=== PATIENT | female | born 1985 | race Caucasian/White ===

== ENCOUNTER 2020-09-08 17:26 | Emergency (ER) | payer OTHER, SELFPAY ==
[2020-09-08 19:54] VITALS: BP 140/64; PULSE 92; RESP 18; TEMP 37.2; O2SAT 99; BMI 80.0
--- NOTE | 2020-09-08 19:59 | ED.URI ---
HPI - URI/Sore Throat General Stated Complaint: Flu like Symptoms Time Seen by Provider: 09/08/20 19:05 Source: patient Mode of arrival: ambulatory Limitations: no limitations History of Present Illness HPI Narrative: patient presents to the ED for body aches, chills, night sweats, and fever. Patient states started having symptoms last night. 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 Related Data Previous Rx's Medication Instructions Recorded dextroamphetamine-amphetamine 10 10 mg PO TID 30 Days #90 tab 08/09/20 mg tablet Allergies Allergy/AdvReac Type Severity Reaction Status Date / Time Sulfa (Sulfonamide Allergy Unknown Hives, Unverified 06/09/20 00:00 Antibiotics) hives, ulcers Review of Systems Review of Systems: Yes all other systems are reviewed and are negative Constitutional: Constitutional: Reports as per HPI, Reports no additional constitutional complaints, Reports body ache(s), Reports chills, Reports fatigue and Reports fever(s) Eyes: Eyes: Reports as per HPI and Reports no additional eye complaints ENT: Reports system reviewed and no additional complaints, except as documented and Reports as per HPI Cardiovascular: Cardiovascular: Reports as per HPI, Reports no additional cardiovascular complaints, Denies chest pain, Denies chest pain at rest, Denies chest pain with activity, Denies dyspnea, Denies dyspnea on exertion, Denies orthopnea and Denies paroxysmal nocturnal dyspnea Respiratory: Respiratory: Reports as per HPI, Reports no additional respiratory complaints, Denies change in phlegm color, Denies chest congestion, Denies cough, Denies pain with cough, Denies dyspnea and Denies dyspnea on exertion Gastrointestinal: Gastrointestinal: Reports as per HPI, Reports no additional gastrointestinal complaints, Denies abdominal pain, Denies belching, Denies melena, Denies bloating, Denies hematochezia, Denies tenesmus, Denies change in stool character, Denies coffee ground emesis, Denies constipation, Denies GI cramping, Denies early satiety, Denies heartburn and Denies fecal incontinence Genitourinary: Genitourinary: Reports no additional female genitourinary complaints and Reports as per HPI Musculoskeletal: Musculoskeletal: Reports no additional musculoskeletal complaints and Reports as per HPI Neurologic: Reports system reviewed and no additional complaints, except as documented and Reports as per HPI Psychiatric: Psychiatric: Reports no additional psychiatric complaints and Reports as per HPI Endocrine: Endocrine: Reports fatigue [facility] Past Medical History Medical History (Updated 09/08/20 @ 20:05 by GUDELIA Choi) Appendicitis Asthma Social History Social History Alcohol intake: never Smoked in Last 30 Days: No Use of substances other than those prescribed or required for medical reasons: No Advance Directives: No Physical Exam Vital Signs: Vital Signs: Last Vital Signs Temp 99 F 09/08/20 19:54 Pulse 92 09/08/20 19:54 Resp 18 09/08/20 19:54 BP 140/64 H 09/08/20 19:54 Pulse Ox 99 09/08/20 19:54 Body Mass Index 80.0 Const: General: cooperative, healthy appearing, comfortable, no acute distress, well developed, alert and awake Orientation/consciousness: oriented to person, oriented to place, oriented to time and patient oriented x3 HENMT: Head: Yes normal to inspection and Yes No palpable skull fracture present Eyes: General: appearance normal, both eyes and all related structures Visual Arcos: normal visual arcos by confrontation Neck: Neck: Yes normal visual inspection, Yes full ROM, Yes no lymphadenopathy and Yes no meningeal signs Chest: Chest palpation & inspection: normal inspection of the chest, normal palpation of entire chest wall and no localized rib tenderness Resp: Effort & Inspection: normal respiratory effort, able to speak in complete sentences, normal respiratory pattern, no audible wheezes, no cough, no grunting, not labored and no nasal flaring Auscultation: clear to auscultation bilaterally, no crackles, no rales, no rhonchi and no wheezes Cardio: Jugular venous distension: no JVD Heart sounds: S1 normal heart sound present and S2 normal heart sound present GI: Inspection: Yes normal to inspection and No abdominal wall ecchymosis Palpation (GI): Soft to palpation, not firm, nontender, no guarding and not rigid : General: No CVA tenderness and Yes no CVA tenderness Back/Spine/Pelvis: Back: no CVA tenderness, No CVA tenderness and No back tenderness Skin: General skin exam: no rashes or lesions noted Neuro: General: oriented to person, oriented to place, oriented to time, patient oriented x3, gait normal, no meningeal signs and No CN's II-XI intact bilaterally Cranial nerves: No CN's II-XII intact bilaterally Extrem: General: Yes normal to inspection and Yes full ROM Psych: Appearance: grossly normal, well kempt and not disheveled Course Course Course Narrative: no imaging or labs needed. Patient will be swabbed for COVID-19 virus. Reevaluation(s) Reevaluation #1: Patient is swabbed for COVID-19. Patient educated on self-isolation. Time: 20:03 MDM - URI/Sore Throat MDM Narrative Medical decision making narrative: viral syndrome Discharge Plan Discharge Clinical Impression: Acute viral syndrome Patient Disposition: Home, Self-Care Instructions: Viral Syndrome (ED) Additional Instructions: return to the ED immediately for any chest pain, shortness of breath, coughing up blood, weakness, tractor for fever/chills, or any other concerning symptoms. Recommend 14 days self-isolation if COVID test come back positive. Stand Alone Forms: Work/School Release Print Language: Kazakh
== END 2020-09-08 20:31 | disposition home or self-care (01) ==
PROVIDERS: Physician Assistant; Emergency Provider Internal Medicine
DX: B34.9 Viral infection, unspecified (principal); M79.10 Myalgia, unspecified site; R05 Cough; Z20.828 Contact with and (suspected) exposure to other viral communicable diseases
CPT/HCPCS: 99283; 99284; U0003

== ENCOUNTER 2020-09-29 09:09 | Emergency (ER) | payer OTHER, SELFPAY ==
[2020-09-29 09:24] VITALS: BP 145/65; PULSE 84; RESP 17; TEMP 36.6; O2SAT 98; BMI 36.3
--- NOTE | 2020-09-29 09:36 | ED_ITS ---
HPI - Headache General Chief Complaint: Headache Stated Complaint: Headache Time Seen by Provider: 09/29/20 09:29 History of Present Illness HPI Narrative: patient is a 34-year-old female presents today with having headache over the right side worsen with light worsen with noise associated with nausea similar to previous bouts of migraine headache. No fever no chills. Patient does not think she is . No coughing or congestion or upper respiratory symptoms. No diaphoresis. Patient is from home. No focal weakness. No neck pain or fever Related Data Previous Rx's Medication Instructions Recorded dextroamphetamine-amphetamine 10 10 mg PO TID 30 Days #90 tab 08/09/20 mg tablet ibuprofen 400 mg PO Q6H PRN #20 tab 09/29/20 ondansetron 4 mg PO TID PRN 5 Days #10 tab 09/29/20 Allergies Allergy/AdvReac Type Severity Reaction Status Date / Time Sulfa (Sulfonamide Allergy Unknown Hives, Unverified 06/09/20 00:00 Antibiotics) hives, ulcers Review of Systems Review of Systems: Constitutional: No Weight loss, No Fever, No Chills, No Night Sweats, No Fatigue, No Malaise ENT/Mouth: No Hearing loss, No Ear Pain, No Nasal Congestion, No Sinus Pain, No Hoarseness, No sore throat, No Rhinorrhea, No Swallowing Difficulty Eyes: No Eye Pain, No Swelling, No Redness, No Foreign Body, No Discharge, No Vision Changes Cardiovascular: No Chest Pain, No SOB, No Dyspnea on Exertion, No Orthopnea, No Edema, No Palpitations Respiratory: No Cough, No Sputum, No Wheezing, No Smoke Exposure, No Dyspnea Gastrointestinal: positiveNausea, No Vomiting, No Diarrhea, No Constipation, No abdominal Pain, No Hematochezia, No Melena Genitourinary: no irregular bleeding, No Dysuria, No Urinary Frequency, No Hematuria, No Urinary Incontinence, No Urgency, No Flank Pain, No Urinary Flow Changes, No Hesitancy Musculoskeletal: No joint pain, No Myalgias, No Joint Swelling Skin: No Skin Lesions, No rash Neuro: No Weakness, No Numbness, No Paresthesias, No Loss of Consciousness, No Dizziness, positive Headache Psych: No Anxiety/Panic, No Depression, No SI/HI/AH/VH, No Social Issues, Heme/Lymph: No Bruising, No Bleeding,No Lymphadenopathy Endocrine: No Polyuria, No Polydipsia, No Temperature Intolerance [facility] Past Medical History Medical History Appendicitis Asthma Migraines Surgical History History of tonsillectomy and adenoidectomy Social History Social History Alcohol intake: never Advance Directives: No Advance Directives Information Provided: No Physical Exam Vital Signs: Vital Signs: Last Vital Signs Temp 98 F 09/29/20 09:24 Pulse 84 09/29/20 09:24 Resp 17 09/29/20 09:24 BP 145/65 H 09/29/20 09:24 Pulse Ox 98 09/29/20 09:24 Body Mass Index 36.3 Appearance: Alert. Oriented X3. No acute distress. Eyes: Pupils equal, round and reactive to light. ENT: Pharynx normal. Neck: Normal inspection. Neck supple. No lymph nodes noted. No crepitus CVS: Normal heart rate and rhythm. Pulses normal. Normal S1 and S2 Respiratory: No respiratory distress. Breath sounds normal. No Wheezing. No rales Abdomen: Soft and nontender. No rigidity. No distention. good BS x4 Skin: Skin warm and dry. Normal skin color. Normal skin turgor. Extremities: No lower extremity edema. Neurovascular intact to all extremities. No Lacerations. No Rash Neuro: Oriented X 3. No motor deficit. No sensory deficit. Moving all extermities. No slurred speech MDM - Headache MDM Narrative Medical decision making narrative: neurologically intact. Patient well appear ing no distress. We will go ahead and give pain medication. Nausea medication. We will monitor carefully. Symptoms improved dramatically. Almost pain-free. Will discharge patient home. Patient has symptoms consistent with migraine. There is no fever no chills. No nuchal rigidity. No evidence for meningitis. History of similar pain unlikely secondary to bleed. Patient in stable condition. Discharge Plan Discharge Clinical Impression: Migraine Patient Disposition: Home, Self-Care Instructions: Migraine Headache (ED) Prescriptions: New ibuprofen 400 mg tablet 400 mg PO Q6H PRN (Reason: pain) Qty: 20 RF: 0 ondansetron 4 mg tablet,disintegrating 4 mg PO TID PRN (Reason: nausea and vomiting) 5 Days Qty: 10 RF: 0 Referrals: Casper Carey, [employer] [Primary Care Provider] - 2 days
[2020-09-29] MEDS: 0.9 % Sodium Chloride 1,000 ML 999 ML IVCONT (09:48)
[2020-09-29] MEDS: diphenhydrAMINE HCL 50 MG/ML VIAL 25 MG IVPUSH (09:48)
[2020-09-29] MEDS: Prochlorperazine Edisylate 10 MG/2 ML VIAL IVPUSH (09:51)
[2020-09-29] MEDS: Ketorolac Tromethamine 30 MG/ML VIAL IVPUSH (09:51)
[2020-09-29 10:00] VITALS: BP 122/66; PULSE 66; O2SAT 98
== END 2020-09-29 11:36 | disposition home or self-care (01) ==
PROVIDERS: Emergency Provider Emergency Medicine Emergency Medical Services; PCP Nurse Practitioner Family
DX: G43.909 Migraine, unspecified, not intractable, without status migrainosus (principal); Z79.899 Other long term (current) drug therapy
CPT/HCPCS: 96361; 96374; 96375; 99284; J1200; J1885

== ENCOUNTER 2021-08-31 08:52 | Emergency (ER) | payer OTHER, SELFPAY ==
--- NOTE | ~2021-08-31 | CT_ITS ---
EXAMINATION: CT ABDOMEN AND PELVIS WITHOUT CONTRAST CLINICAL INFORMATION: Left flank pain COMPARISON: Previous abdominal ultrasound from 2013 TECHNIQUE: Multidetector volumetric imaging was performed from the superior aspect of the liver through the pubic symphysis. Sagittal and coronal reformatted images were obtained on the technologist's workstation. This CT examination was performed using dose optimization techniques as appropriate, variously including the following: *Automated exposure control *Adjustment of mA and/or kV according to patient size (this includes techniques or standardized protocols for targeted exams where dose is matched to indication/reason for exam; i.e. extremities or head) *Use of iterative reconstruction technique DLP: 899 mGy-cm FINDINGS: LUNG BASES: There is a 2 mm right lower lobe nodule. The lung bases are otherwise clear. LIVER, GALLBLADDER, AND BILIARY TREE: The liver is normal in size, shape, and attenuation. No focal hepatic lesion or biliary ductal dilatation is present. The gallbladder is unremarkable with no evidence of radiopaque gallstones, gallbladder wall thickening, or obvious pericholecystic inflammatory changes. PANCREAS: Unremarkable. SPLEEN: Unremarkable. ADRENAL GLANDS: Unremarkable. KIDNEYS AND URETERS: The kidneys are normal in size, shape, and attenuation. No hydronephrosis, hydroureter, or calculi seen. No perinephric stranding. BLADDER: Unremarkable. GASTROINTESTINAL TRACT: The small and large bowel are unremarkable. The appendix is is not seen. ABDOMINAL WALL: There is diastasis of the rectus muscles and small umbilical hernia containing fat. LYMPH NODES: Normal. VASCULAR: Unremarkable. PELVIC VISCERA: There is an IUD in the uterus satisfactory position. Uterus and adnexa are otherwise unremarkable. OSSEOUS STRUCTURES: There is curvature of the lumbar spine to the right. There is increased sclerosis along the iliac side of the bilateral sacroiliac joint CT/CT abdomen pelvis wo con IMPRESSION: Small 2 mm right lower lobe pulmonary nodule. Normal-appearing kidneys. No stone or hydronephrosis seen. IUD in the uterus.
[2021-08-31 09:14] VITALS: BP 153/93; PULSE 87; RESP 19; TEMP 36.6; O2SAT 99; BMI 35.6
--- NOTE | 2021-08-31 10:49 | ED_ITS ---
HPI - Female Genitourinary General Chief complaint: Urogenital-Female Stated complaint: flank pain Time Seen by Provider: 08/31/21 10:49 Source: patient Mode of arrival: ambulatory Limitations: no limitations History of Present Illness HPI Narrative: 35-year-old female is here today for complaining of left flank pain. Patient reports that she was not doing anything she experienced sudden left flank pain. Pain was sharp radiating to her left leg. Patient reports that she was worry about that she might have a kidney stone was drinking plenty fluids. Couple days before that she reported that she had spotting. No blood seen in her urine sense. Patient does not remember any injuries. Patient denies any fever or chills. Reports urinary frequency however she also reports that she has been drinking a lot a water. Patient denies any nausea or vomiting no abdominal pain discomfort or cramping. Moving her bowels without any difficulties no diarrhea or constipation. Patient denies melena, hematochezia, unintentional weight loss or ribbon like stools. Patient reports that she has not remember ever having kidney stones, however she does remember similar pain couple years ago that eventually went away MD elicited complaint: other (Left flank pain radiating to left leg) Onset (ago): day(s) (Yesterday) Related Data Previous Rx's Medication Instructions Recorded dextroamphetamine-amphetamine 10 10 mg PO TID 30 Days #90 tab 08/09/20 mg tablet (Adderall) ibuprofen 400 mg tablet 400 mg PO Q6H PRN #20 tab 09/29/20 ondansetron 4 mg disintegrating 4 mg PO TID PRN 5 Days #10 tab 09/29/20 tablet ProAir HFA 90 mcg/actuation 2 puff INHALATION Q4-6H PRN #8.5 g 10/26/20 aerosol inhaler (albuterol sulfate) NS fluticasone 113mcg-salmeterol 1 inh INHALATION BID 30 Days #1 ea 10/26/20 14mcg/actuation breath act,powder sensor (AirDuo Digihaler) [id number] 1 tab PO Q6H PRN #10 tab 02/23/21 50 mg-325 mg-40 mg tablet sumatriptan succinate 50 mg tablet See Rx Instructions PO .COMPLEX 10 05/15/21 Days #20 tab omeprazole 40 mg capsule,delayed 40 mg PO DAILY 90 Days #90 cap 06/19/21 release cyclobenzaprine 10 mg tablet 10 mg PO BEDTIME PRN #10 tab 08/31/21 ibuprofen 600 mg tablet 600 mg PO Q8H PRN #20 tab 08/31/21 Allergies Allergy/AdvReac Type Severity Reaction Status Date / Time Sulfa (Sulfonamide Allergy Unknown Hives, Verified 11/02/20 09:57 Antibiotics) hives, ulcers Review of Systems Review of Systems: Constitutional : No Weight loss, No Fever, No Chills, No Night Sweats, No Fatigue, No Malaise ENT/Mouth : No Hearing loss, No Ear Pain, No Nasal Congestion, No Sinus Pain, No Hoarseness, No sore throat, No Rhinorrhea, No Swallowing Difficulty Eyes: No Eye Pain, No Swelling, No Redness, No Foreign Body, No Discharge, No Vision Changes Cardiovascular : No Chest Pain, No SOB, No Dyspnea on Exertion, No Orthopnea, No Edema, No Palpitations Respiratory : No Cough, No Sputum, No Wheezing, No Smoke Exposure, No Dyspnea Gastrointestinal : No Nausea, No Vomiting, No Diarrhea, No Constipation, No abdominal Pain, No Hematochezia, No Melena, left flank pain Genitourinary : no irregular bleeding, No Dysuria, No Urinary Frequency, Hematuria, No Urinary Incontinence, Urgency, left Flank Pain, Urinary Flow Changes, No Hesitancy Musculoskeletal : No joint pain, No Myalgias, No Joint Swelling, left flank pain radiating to left leg and groin Skin : No Skin Lesions, No rash Neuro : No Weakness, No Numbness, No Paresthesias, No Loss of Consciousness, No Dizziness, No Headache Psych : No Anxiety/Panic, No Depression, No SI/HI/AH/VH, No Social Issues, Yes all other systems are reviewed and are negative [facility] Past Medical History Medical History (Updated 08/31/21 @ 13:14 by EVERARDO Meraz-) Appendicitis Asthma Migraines Surgical History History of appendectomy History of lipoma History of tonsillectomy and adenoidectomy Family History Family History (Updated 11/02/20 @ 10:05 by Ann Alex, RMA, LIGHTING TECHNICIAN) Father HTN (hypertension) High cholesterol Mother No problems noted. Brother HTN (hypertension) Anxiety High cholesterol Brother Morbidly obese Maternal Grandmother No problems noted. Maternal Grandfather Heart disease Paternal Grandmother No problems noted. Paternal Grandfather No problems noted. Son No problems noted. Son No problems noted. Son No problems noted. Social History Social History Alcohol intake: never Advance Directives: No Advance Directives Information Provided: No Patient : No Physical Exam Vital Signs: Vital Signs: Last Vital Signs Temp 97.7 F 08/31/21 11:17 Pulse 77 08/31/21 11:17 Resp 16 08/31/21 11:17 BP 119/70 08/31/21 11:17 Pulse Ox 99 08/31/21 11:17 Body Mass Index 35.6 Const: General: healthy appearing, no acute distress and well developed Nutritional Appearance: well nourished Orientation/consciousness: patient oriented x3 HENMT: Head: Yes normal to inspection, Yes normocephalic and Yes atraumatic Ears: hearing grossly normal bilaterally, external ears normal and TM's normal bilaterally General nose exam: Normal external nose present Face and sinus: Yes normal facial exam Mouth: Normal oral and palatal mucosa present Throat: Yes posterior oropharynx normal, Yes tonsils normal and Yes uvula midline Eyes: General: appearance normal, both eyes and all related structures Neck: Neck: Yes normal visual inspection, Yes full ROM and Yes trachea midline Thyroid: Thyroid normal Resp: Effort & Inspection: normal respiratory effort and able to speak in complete sentences Auscultation: clear to auscultation bilaterally Cardio: Jugular venous distension: no JVD Rate: regular rate Rhythm: regular rhythm Heart sounds: S1 normal heart sound present and S2 normal heart sound present GI: Inspection: Yes normal to inspection and No distended Palpation (GI): Soft to palpation, nontender, no guarding and No hepatosplenomegaly present Auscultation: normal bowel sounds : General: Yes no CVA tenderness Back/Spine/Pelvis: Back: no CVA tenderness Cervical Spine: normal cervical lordosis Thoracic/Lumbar Spine: thoracic and lumbar spine normal to inspection and paraspinal muscle tenderness (Left lumbar region) Pelvis: no pain with anterior-posterior compression, no pain with lateral compression and no sciatic notch tenderness Skin: General skin exam: elasticity normal, turgor normal and dry skin Neuro: General: patient oriented x3 Course Course Course Narrative: 35-year-old female is here today for left flank pain. Patient reports pain started yesterday sudden and sharp radiating to her left leg and groin. Patient reports that the pain is worse when she moves. However she denies any physical strain or injury. Patient reports to have spotting couple days ago. Increased and frequent urination no pain or burning. Patient reports that she increased her fluids intake thinking that she might have kidney stones. Patient denies any history of kidney stones in the past. Reevaluation(s) Reevaluation #1: Labs back no leukocytosis and no anemia urine negative for blood, bacteria or nitrate. Chemistry normal except for ALT 55 which seems to be chronic patient's ALT was 42 in December of 2019. [address] scan. Her pain could be muscular in origin, sciatica, SI joint Reevaluation #2: CT scan results show: There is curvature of the lumbar spine to the right. There is increased sclerosis along the iliac side of the bilateral sacroiliac joint. Patient will need to follow-up with PCP for possible physical therapy treatment I will send her home with ibuprofen and Flexeril at night MDM - Female Genitourinary Lab Data Result diagrams: 08/31/21 11:10 08/31/21 11:10 Labs: Lab Results 08/31/21 08/31/21 08/31/21 Range/Units 11:10 11:10 11:10 WBC 8.1 (4.8-10.8) X10*3/uL RBC 4.97 (4.20-5.50) X10*6/uL Hgb 13.2 (12.0-16.0) g/dl Hct 40.4 (37-47) % MCV 81.3 (80-98) fL MCH 26.6 L (27.0-33.0) pg MCHC 32.7 (31.0-35.0) g/dl RDW 13.1 (11.0-16.0) % Plt Count 305 (160-400) X10*3/uL MPV 9.1 L (9.4-12.3) fL Immature Gran % (Auto) 0.2 (0.0-0.4) % Neut % (Auto) 53.0 (45-73) % Lymph % (Auto) 32.8 (20-40) % [place] % (Auto) 7.1 (2-11) % Eos % (Auto) 6.0 H (0-4) % Baso % (Auto) 0.9 (0-2) % Lymph # (Auto) 2.7 (1.2-4.9) X10*3/uL [place] # (Auto) 0.6 (0.1-1.2) X10*3/uL Eos # (Auto) 0.5 H (0.0-0.4) X10*3/uL Baso # (Auto) 0.1 (0.0-0.2) X10*3/uL Abs Immat Gran (auto) 0.02 (0.00-0.03) X10*3/uL Absolute Neuts (auto) 4.3 (2.0-8.3) X10*3/uL Absolute Nucleated RBC 0.000 (0.0-0.012) X10*3/uL Nucleated RBC % (auto) 0.0 (0.0-0.2) /100WBC Sodium 140 (135-145) mmol/L Potassium 4.3 (3.3-5.1) mmol/L Chloride 104 (96-108) mmol/L Carbon Dioxide 28 (22-29) mmol/L Anion Gap 12 (12-20) BUN 14 (9-16) mg/dL Creatinine 0.90 (0.5-1.4) mg/dL Estim Creat Clear Calc 105.1 Estimated GFR > 60 Random Glucose 91 (60-115) mg/dL Calcium 10.0 (8.4-10.2) mg/dL Total Bilirubin 0.3 (0.0-1.0) mg/dL AST 31 (5-31) U/L ALT 55 H (0-31) U/L Alkaline Phosphatase 65 (39-117) U/L Total Protein 7.5 (6.5-8.0) g/dL Albumin 4.5 (3.5-5.0) g/dL Urine Color STRAW Urine Appearance CLEAR Urine pH 6.0 (5.0-8.0) Ur Specific [place] 1.020 (1.005-1.025) Urine Protein NEG (NEG-TRACE) MG/DL Urine Glucose (UA) NEG (NEG) MG/DL Urine Ketones NEG (NEG) MG/DL Urine Blood NEG (NEG) Urine Nitrite NEG (NEG) Ur Leukocyte Esterase NEG (NEG) Urine Test (NEGATIVE) 08/31/21 Range/Units 11:10 WBC (4.8-10.8) X10*3/uL RBC (4.20-5.50) X10*6/uL Hgb (12.0-16.0) g/dl Hct (37-47) % MCV (80-98) fL MCH (27.0-33.0) pg MCHC (31.0-35.0) g/dl RDW (11.0-16.0) % Plt Count (160-400) X10*3/uL MPV (9.4-12.3) fL Immature Gran % (Auto) (0.0-0.4) % Neut % (Auto) (45-73) % Lymph % (Auto) (20-40) % [place] % (Auto) (2-11) % Eos % (Auto) (0-4) % Baso % (Auto) (0-2) % Lymph # (Auto) (1.2-4.9) X10*3/uL [place] # (Auto) (0.1-1.2) X10*3/uL Eos # (Auto) (0.0-0.4) X10*3/uL Baso # (Auto) (0.0-0.2) X10*3/uL Abs Immat Gran (auto) (0.00-0.03) X10*3/uL Absolute Neuts (auto) (2.0-8.3) X10*3/uL Absolute Nucleated RBC (0.0-0.012) X10*3/uL Nucleated RBC % (auto) (0.0-0.2) /100WBC Sodium (135-145) mmol/L Potassium (3.3-5.1) mmol/L Chloride (96-108) mmol/L Carbon Dioxide (22-29) mmol/L Anion Gap (12-20) BUN (9-16) mg/dL Creatinine (0.5-1.4) mg/dL Estim Creat Clear Calc Estimated GFR Random Glucose (60-115) mg/dL Calcium (8.4-10.2) mg/dL Total Bilirubin (0.0-1.0) mg/dL AST (5-31) U/L ALT (0-31) U/L Alkaline Phosphatase (39-117) U/L Total Protein (6.5-8.0) g/dL Albumin (3.5-5.0) g/dL Urine Color Urine Appearance Urine pH (5.0-8.0) Ur Specific [place] (1.005-1.025) Urine Protein (NEG-TRACE) MG/DL Urine Glucose (UA) (NEG) MG/DL Urine Ketones (NEG) MG/DL Urine Blood (NEG) Urine Nitrite (NEG) Ur Leukocyte Esterase (NEG) Urine Test NEGATIVE (NEGATIVE) Imaging Data CT scan - abdomen: Attestation: I personally reviewed and interpreted this imaging study as follows: Radiologist's impression: FINDINGS: LUNG BASES: There is a 2 mm right lower lobe nodule. The lung bases are otherwise clear. LIVER, GALLBLADDER, AND BILIARY TREE: The liver is normal in size, shape, and attenuation. No focal hepatic lesion or biliary ductal dilatation is present. The gallbladder is unremarkable with no evidence of radiopaque gallstones, gallbladder wall thickening, or obvious pericholecystic inflammatory changes.? PANCREAS: Unremarkable.? SPLEEN: Unremarkable.? ADRENAL GLANDS: Unremarkable.? KIDNEYS AND URETERS: The kidneys are normal in size, shape, and attenuation. No hydronephrosis, hydroureter, or calculi seen. No perinephric stranding. ? BLADDER: Unremarkable.? GASTROINTESTINAL TRACT: The small and large bowel are unremarkable. The appendix is is not seen. ABDOMINAL WALL: There is diastasis of the rectus muscles and small umbilical hernia containing fat. LYMPH NODES: Normal. VASCULAR: Unremarkable. PELVIC VISCERA: There is an IUD in the uterus satisfactory position. Uterus and adnexa are otherwise unremarkable. OSSEOUS STRUCTURES: There is curvature of the lumbar spine to the right. There is increased sclerosis along the iliac side of the bilateral sacroiliac joint Discharge Plan Discharge Clinical Impression: Disorder of SI (sacroiliac) joint, Muscle spasm Patient Disposition: Home, Self-Care Instructions: Muscle Spasm (ED) Additional Instructions: You were seen here today for left flank pain radiating to year leg. CT scan was negative for stone. Urine is negative for infection. Your labs show no anemia no infection. However CT scan showed mild sclerosis of year SI joint. You might benefit from physical therapy. Please follow-up with the PCP in 2-3 days. You will be given ibuprofen for pain and muscle relaxer at night. Please do not drink alcohol or do not drive when you take this medication. You may return to emergency department if his symptoms will get worse or if you experience any additional concerning symptoms Prescriptions: New cyclobenzaprine 10 mg tablet 10 mg PO BEDTIME PRN (Reason: muscle spasm) Qty: 10 RF: 0 ibuprofen 600 mg tablet 600 mg PO Q8H PRN (Reason: pain) Qty: 20 RF: 0 No Action albuterol sulfate [ProAir HFA] 90 mcg/actuation HFA aerosol inhaler 2 puff inhalation Q4-6H PRN (Reason: shortness of breath or wheezing) Qty: 8.5 RF: 3 AirDuo Digihaler 113 mcg-14 mcg/actuation aero powdr breath act w/sensor 1 inh inhalation BID 30 Days Qty: 1 RF: 6 [id number]-[id number]-fhdn 50-325-40 mg tablet 1 tab PO Q6H PRN (Reason: headache) Qty: 10 RF: 0 sumatriptan succinate 50 mg tablet See Rx Instructions PO .COMPLEX 10 Days Qty: 20 RF: 2 omeprazole 40 mg capsule,delayed release(DR/EC) 40 mg PO DAILY 90 Days Qty: 90 RF: 0 ibuprofen 400 mg tablet 400 mg PO Q6H PRN (Reason: pain) Qty: 20 RF: 0 ondansetron 4 mg tablet,disintegrating 4 mg PO TID PRN (Reason: nausea and vomiting) 5 Days Qty: 10 RF: 0 Referrals: Casper Carey FNP-BC [Primary Care Provider] - 2 days Stand Alone Forms: Work/School Release Interventions: ED Discharge Assessment Last Done: 08/31/21 14:08 Discharge Date/Time: 08/31/21 14:08
[2021-08-31 11:16] LABS: MANUAL DIFF FLAG NO
[2021-08-31 11:17] VITALS: BP 119/70; PULSE 77; RESP 16; TEMP 36.5; O2SAT 99
[2021-08-31 11:18] LABS: Basophils Absolute Auto 0.1 X10*3/uL (0.0-0.2); Basophils Percent Auto 0.9 % (0-2); Eosinophils Absolute Auto 0.5 X10*3/uL (0.0-0.4); Hematocrit 40.4 % (37-47); Hemoglobin 13.2 g/dl (12.0-16.0); Imm Gran Abs Auto 0.02 X10*3/uL (0.00-0.03); Imm Gran Pct Auto 0.2 % (0.0-0.4); Lymphocytes Absolute Auto 2.7 X10*3/uL (1.2-4.9); Lymphocytes Percent Auto 32.8 % (20-40); Mean Corpuscular HGB Conc 32.7 g/dl (31.0-35.0); Mean Corpuscular Hemoglobin 26.6 pg (27.0-33.0); Mean Corpuscular Volume 81.3 fL (80-98); Mean Platelet Volume 9.1 fL (9.4-12.3); Monocytes Absolute Auto 0.6 X10*3/uL (0.1-1.2); Monocytes Percent Auto 7.1 % (2-11); Neutrophils Absolute Auto 4.3 X10*3/uL (2.0-8.3); Platelet Count 305 X10*3/uL (160-400); Red Blood Count 4.97 X10*6/uL (4.20-5.50); Red Cell Distribution Width 13.1 % (11.0-16.0); White Blood Count 8.1 X10*3/uL (4.8-10.8)
[2021-08-31 11:20] LABS: Appearance Urine CLEAR; Color Urine STRAW; Glucose Urine UA NEG (NEG); Leukocyte Esterase Urine NEG (NEG); Nitrite Urine NEG (NEG); Urine Blood NEG (NEG); Urine Ketones NEG (NEG); Urine Protein NEG (NEG-TRACE)
[2021-08-31] MEDS: Ketorolac Tromethamine 15 MG/ML VIAL 30 MG IVPUSH (11:23)
[2021-08-31] MEDS: 0.9 % Sodium Chloride 1,000 ML 999 ML IV (11:23)
[2021-08-31 11:24] LABS: UPreg QC Valid YES; Urine Pregnancy NEGATIVE (NEGATIVE)
[2021-08-31 11:36] LABS: Alanine Aminotransferase 55 U/L (0-31); Albumin Level 4.5 g/dL (3.5-5.0); Alkaline Phosphatase 65 U/L (39-117); Anion Gap 12 (12-20); Aspartate Amino Transferase 31 U/L (5-31); Bilirubin Total 0.3 mg/dL (0.0-1.0); Blood Urea Nitrogen 14 mg/dL (9-16); Carbon Dioxide 28 mmol/L (22-29); Chloride 104 mmol/L (96-108); Creatinine Clr Calc Pharmacy 105.1; Estimated Glomerular Filt Rate > 60; Glucose Random 91 mg/dL (60-115); Potassium 4.3 mmol/L (3.3-5.1); Sodium 140 mmol/L (135-145); Total Protein 7.5 g/dL (6.5-8.0)
== END 2021-08-31 14:08 | disposition home or self-care (01) ==
PROVIDERS: Nurse Practitioner Family; Emergency Provider Emergency Medicine; PCP Nurse Practitioner Family
DX: M46.1 Sacroiliitis, not elsewhere classified (principal); M62.830 Muscle spasm of back; R10.9 Unspecified abdominal pain
CPT/HCPCS: 36415; 74176; 80053; 81003; 81025; 85025; 96361; 96374; 99284; J1885

== ENCOUNTER 2022-01-11 10:20 | Outpatient (REF) | payer OTHER, SELFPAY ==
[2022-01-11 11:38] LABS: MANUAL DIFF FLAG NO
[2022-01-11 11:51] LABS: Basophils Absolute Auto 0.1 X10*3/uL (0.0-0.2); Basophils Percent Auto 0.7 % (0-2); Eosinophils Absolute Auto 0.8 X10*3/uL (0.0-0.4); Eosinophils Percent Auto 8.8 % (0-4); Hematocrit 39.9 % (37.0-47.0); Hemoglobin 12.8 g/dl (12.0-16.0); Imm Gran Abs Auto 0.03 X10*3/uL (0.00-0.03); Imm Gran Pct Auto 0.3 % (0.0-0.4); Lymphocytes Absolute Auto 2.2 X10*3/uL (1.2-4.9); Lymphocytes Percent Auto 22.9 % (20-40); Mean Corpuscular HGB Conc 32.1 g/dl (31.0-35.0); Mean Corpuscular Hemoglobin 26.3 pg (27.0-33.0); Mean Corpuscular Volume 82.1 fL (80.0-98.0); Mean Platelet Volume 9.4 fL (9.4-12.3); Monocytes Absolute Auto 0.7 X10*3/uL (0.1-1.2); Monocytes Percent Auto 6.9 % (2-11); Neutrophils Absolute Auto 5.7 x10*3/uL (2.0-8.3); Neutrophils Percent Auto 60.4 % (45-73); Platelet Count 359 X10*3/uL (160-400); Red Blood Count 4.86 X10*6/uL (4.20-5.50); Red Cell Distribution Width 13.3 % (11.0-16.0); White Blood Count 9.4 X10*3/uL (4.8-10.8)
[2022-01-11 11:52] LABS: Appearance Urine HAZY; Color Urine YELLOW; Glucose Urine UA NEG (NEG); Leukocyte Esterase Urine NEG (NEG); Nitrite Urine NEG (NEG); Urine Blood NEG (NEG); Urine Ketones NEG (NEG); Urine Protein NEG (NEG-TRACE)
[2022-01-11 12:21] LABS: Alanine Aminotransferase 33 U/L (0-31); Albumin Level 4.5 g/dL (3.5-5.0); Alkaline Phosphatase 61 U/L (39-117); Anion Gap 12 (12-20); Aspartate Amino Transferase 24 U/L (5-31); Bilirubin Total 0.4 mg/dL (0.0-1.0); Blood Urea Nitrogen 14 mg/dL (9-16); Calcium 9.8 mg/dL (8.4-10.2); Carbon Dioxide 25 mmol/L (22-29); Chloride 104 mmol/L (96-108); Cholesterol 208 mg/dL; Estimated Glomerular Filt Rate > 60; Glucose Fasting 86 mg/dL (60-99); HDL Cholesterol 56 mg/dL; LDL Cholesterol Calculated 126 mg/dl; Potassium 4.1 mmol/L (3.3-5.1); Sodium 137 mmol/L (135-145); Total Protein 7.5 g/dL (6.5-8.0); Triglycerides 133 mg/dL
[2022-01-11 12:31] LABS: TSH reflex Free T4 1.01 uIU/mL (0.32-4.0)
== END 2022-01-11 10:21 | disposition home or self-care (01) ==
LOC: HO.HMGCLDS 10:20
PROVIDERS: Visit Provider Nurse Practitioner Family
DX: Z00.00 Encounter for general adult medical examination without abnormal findings (principal)
CPT/HCPCS: 36415; 80053; 80061; 81003; 84443; 85025

== ENCOUNTER 2022-06-05 09:36 | Outpatient (REF) | payer OTHER, SELFPAY ==
--- NOTE | ~2022-06-05 | XR_ITS ---
EXAMINATION: XR CALCANEUS, RIGHT CLINICAL INFORMATION: Plantar fascial 5 pneumatosis COMPARISON: None TECHNIQUE: Lateral and axial views of the right calcaneus were obtained. FINDINGS: There is a small retrocalcaneal enthesophyte. The ankle mortise and subtalar joints are normal. No visible acute fracture or dislocation seen. The soft tissues are normal.. XR/XR calcaneus RT min 2V IMPRESSION: Small retrocalcaneal enthesophyte. No visible acute fracture or dislocation seen.
== END 2022-06-05 09:37 | disposition home or self-care (01) ==
LOC: HO.HMGCX 09:36
PROVIDERS: PCP Nurse Practitioner Family; Visit Provider Internal Medicine
DX: M72.2 Plantar fascial fibromatosis (principal)
CPT/HCPCS: 73650

== ENCOUNTER 2023-06-14 08:10 | Outpatient (AMB) | payer OTHER, SELFPAY ==
--- NOTE | 2023-06-14 08:37 | AM.OFFWIN_ITS ---
Intake Vital Signs 06/14/23 08:38 BP 124/90 H Blood Pressure Location Lt brachial Position Sitting Pulse 105 H Pulse Source Pulse Oximeter Temp 98.1 F Temp Source Oral Pulse Oximetry (%) 97 Oxygen Delivery Method Room Air Intake Visit Reasons: EP, Right leg swelling, tingling numbness on left Intake Note: Rt leg swelling, and buzzing feeling on LT foot No injury Pt states swelling been occuring for a few wks. Patient Tobacco Use Status: Former Tobacco user Allergies Sulfa (Sulfonamide Antibiotics) Allergy (Unknown, Verified 06/14/23 08:38) Hives, hives, ulcers Do you need a note to return to daycare/school/sports/work: No HPI HPI Comments History of Present Illness Details 37-year-old female presents with multiple concerns. States that she has had intermittent right lower extremity swelling and tenderness to the inside of the leg started about 2 weeks ago. She is also reporting a buzzing pulsating feeling to the left lower extremity. She does not report any injuries, falls, or loss of sensation. She does not describe any symptoms consistent with cauda equina. She has no prior history of clotting factor deficiencies, is not immunocompromised, has not had any viral syndromes recently, has not taken any medications, denies fevers, chills, loss of balance, loss of sensation, or discoloration to the feet. [facility] Medical History Appendicitis Asthma Migraines Surgical History History of appendectomy History of lipoma History of tonsillectomy and adenoidectomy Family History Father HTN (hypertension) High cholesterol Substance use disorder Mother No problems noted. Brother HTN (hypertension) Anxiety High cholesterol Mental health disorder Brother Morbidly obese Maternal Grandmother No problems noted. Maternal Grandfather Heart disease Paternal Grandmother No problems noted. Paternal Grandfather No problems noted. Son No problems noted. Son No problems noted. Son No problems noted. Social History Housing: Apartment Alcohol intake: never Patient Tobacco Use Status: Former Tobacco user Years Smoked: quit 2006 e-Cigarette/Vaping Use: Never Used Second Hand Smoke Exposure: No service: No Current occupational status: employed Current occupation: [employer] Current occupational exposures/hazards: No Cognitive needs: No Hearing needs: No Vision needs: No Review of Systems Const Details: Constitutional: No Fever, No Chills Cardiovascular: No Chest Pain, No SOB Respiratory: No Cough, No Dyspnea Gastrointestinal: No Nausea, No Vomiting, No Diarrhea, No abdominal Pain Genitourinary: No Dysuria, No Hematuria Musculoskeletal: Positive right leg swelling, No joint pain, No Myalgias, No Joint Swelling Skin: No Skin lacerations, No rash Neuro: Positive bulging sensation to the left foot, No Weakness, No Numbness, No Paresthesias, No Dizziness, No Headache mphadenopathy Endocrine: No Polyuria, No Polydipsia All systems reviewed & are unremarkable except as noted in HPI and below Physical Exam Vital Signs: Last Vital Signs Temp 98.1 F 06/14/23 08:38 Pulse 105 H 06/14/23 08:38 BP 124/90 H 06/14/23 08:38 Pulse Ox 97 06/14/23 08:38 Oxygen Delivery Method Room Air 06/14/23 08:38 Appearance: Alert. Oriented X3. No acute distress. Eyes: Pupils equal, round and reactive to light. Neck: Normal inspection. Neck supple. CVS: Normal heart rate and rhythm. Pulses normal. Respiratory: No respiratory distress. Breath sounds normal. Skin: Skin warm and dry. Normal skin color. Normal skin turgor. Extremities: No lower extremity edema. Gait is well balanced well coordinated. Brisk capillary refill strength 5/5 to all extremities. Neuro: No motor deficit. No sensory deficit. Cranial nerves 2-12 intact. Assessment & Plan Assessment & Plan (1) Right leg swelling: Code(s): M79.89 - Other specified soft tissue disorders Plan 37-year-old female presents with 2 weeks of right-sided lower extremity swelling with tenderness to the medial aspect of the right knee. She does report some swelling at that site as well as the entire leg. Her 2nd concern is a buzzing feeling in the left foot. When she was standing at work yesterday she felt this pulsating buzz to the left foot that almost felt like a heartbeat. She does not report any trauma injury, is not immune compromised, and not taking any flight, does not take any hormones, no prior history or family history of clotting factor deficiencies or blood clots. Physical exam is unremarkable. Vital signs are stable with elevated heart rate of 105. Will order a duplex of the right lower extremity. Will order labs, and x-rays of the lumbar spine. Differentials include but not limited to DVT, cellulitis, sciatica. Low likelihood for GB as patient has not had any prior viral illnesses or vaccines in the several months. Patient will present to [facility] for ultrasound. Patient does understand that she must follow-up with her primary care provider for the results do not return to her today. Patient verbalized understanding of discharge instructions. Verbalized understandings of signs and symptoms indicating need for emergent intervention. Orders: Orders Basic Metabolic Panel Today M79.89 - Other specified soft tissue disorders Complete Blood Count Auto Diff Today M79.89 - Other specified soft tissue disorders US venous duplex LE RT Today M79.89 - Other specified soft tissue disorders XR lumbar spine 2-3V Today M79.89 - Other specified soft tissue disorders Patient Instructions: You were evaluated for right lower extremity swelling and a buzzing feeling in your left foot. Please present to [facility] for the duplex of her right lower extremity. Your lumbar x-rays are pending. Your labs are pending. Please follow-up with primary care provider for these results. If the results come in today, I will call you and update you. You may need further follow-up for this concern. Please request an appointment with your primary provider. Thank you for choosing this urgent care for evaluation. Please follow-up with primary care physician as needed. Return to the emergency department for any new, concerning, or worsening symptoms. Coding Level of Care Code Est Pt Level 3 (46300) Diagnoses Right leg swelling M79.89
[2023-06-14 08:38] VITALS: BP 124/90; PULSE 105; TEMP 36.7; O2SAT 97
== END 2023-06-14 09:43 | disposition home or self-care (01) ==
PROVIDERS: PCP Nurse Practitioner Family; Visit Provider Nurse Practitioner Family
DX: M79.89 Other specified soft tissue disorders (principal)
CPT/HCPCS: 99213

== ENCOUNTER 2023-06-14 09:26 | Outpatient (REF) | payer OTHER, SELFPAY ==
--- NOTE | ~2023-06-14 | XR_ITS ---
EXAMINATION: XR LUMBOSACRAL SPINE CLINICAL INFORMATION: Other specified soft tissue disorders COMPARISON: CT abdomen pelvis August 23, 2021 TECHNIQUE: Three views of the lumbosacral spine. FINDINGS: Normal alignment of the lumbar spine. Lumbar vertebral body heights are maintained. Lumbar disc spaces are well-maintained diffusely. No significant degenerative changes of the lumbar spine. IV projects over the midline pelvis. XR/XR lumbar spine 2-3V IMPRESSION: Unremarkable radiographs of the lumbar spine.
[2023-06-14 11:32] LABS: MANUAL DIFF FLAG NO
[2023-06-14 11:49] LABS: Basophils Absolute Auto 0.1 X10*3/uL (0.0-0.2); Basophils Percent Auto 0.6 % (0-2); Eosinophils Absolute Auto 0.4 X10*3/uL (0.0-0.4); Eosinophils Percent Auto 4.5 % (0-4); Hematocrit 41.7 % (37.0-47.0); Hemoglobin 13.4 g/dl (12.0-16.0); Imm Gran Abs Auto 0.04 X10*3/uL (0.00-0.03); Imm Gran Pct Auto 0.4 % (0.0-0.4); Lymphocytes Absolute Auto 2.1 X10*3/uL (1.2-4.9); Lymphocytes Percent Auto 22.2 % (20-40); Mean Corpuscular HGB Conc 32.1 g/dl (31.0-35.0); Mean Corpuscular Hemoglobin 25.7 pg (27.0-33.0); Mean Corpuscular Volume 79.9 fL (80.0-98.0); Mean Platelet Volume 9.2 fL (9.4-12.3); Monocytes Absolute Auto 0.6 X10*3/uL (0.1-1.2); Monocytes Percent Auto 5.8 % (2-11); Neutrophils Absolute Auto 6.4 x10*3/uL (2.0-8.3); Neutrophils Percent Auto 66.5 % (45-73); Platelet Count 408 X10*3/uL (160-400); Red Blood Count 5.22 X10*6/uL (4.20-5.50); Red Cell Distribution Width 13.5 % (11.0-16.0); White Blood Count 9.6 X10*3/uL (4.8-10.8)
[2023-06-14 12:46] LABS: Alanine Aminotransferase 32 U/L (0-31); Albumin Level 4.6 g/dL (3.5-5.0); Alkaline Phosphatase 73 U/L (39-117); Anion Gap 15 (12-20); Aspartate Amino Transferase 21 U/L (5-31); Bilirubin Total 0.3 mg/dL (0.0-1.0); Blood Urea Nitrogen 18 mg/dL (9-16); Calcium 10.3 mg/dL (8.4-10.2); Carbon Dioxide 24 mmol/L (22-29); Chloride 103 mmol/L (96-108); Cholesterol 221 mg/dL; Estimated Glomerular Filt Rate > 60; Glucose Fasting 87 mg/dL (60-99); HDL Cholesterol 53 mg/dL; LDL Cholesterol Calculated 133 mg/dl; Sodium 138 mmol/L (135-145); Total Protein 8.4 g/dL (6.5-8.0); Triglycerides 175 mg/dL
[2023-06-14 13:03] LABS: TSH reflex Free T4 1.74 uIU/mL (0.32-4.0)
[2023-06-14 13:30] LABS: Appearance Urine Clear; Color Urine Yellow; Glucose Urine UA Negative (Negative); Leukocyte Esterase Urine Negative (Negative); Nitrite Urine Negative (Negative); PH 6.5 (5.0-9.0); Urine Blood Negative (Negative); Urine Ketones Negative (Negative); Urine Protein Negative (Neg-Trace)
[2023-06-17 22:24] LABS: A. Phagocytphilium DNA,RT-PCR NOT DETECTED (NOT DETECTED); Babesia Microti DNA, RT-PCR NOT DETECTED (NOT DETECTED); Borrelia Miyamotoi,DNA RT-PCR NOT DETECTED (NOT DETECTED); E.Chaffeensis DNA RT-PCR NOT DETECTED (NOT DETECTED); Lyme(Borrelia ssp)DNA RT-PCR NOT DETECTED (NOT DETECTED)
== END 2023-06-14 09:27 | disposition home or self-care (01) ==
LOC: HO.HMGCX 09:26
PROVIDERS: PCP Nurse Practitioner Family; Visit Provider Nurse Practitioner Family
DX: L98.9 Disorder of the skin and subcutaneous tissue, unspecified (principal); M79.89 Other specified soft tissue disorders; Z00.00 Encounter for general adult medical examination without abnormal findings
CPT/HCPCS: 36415; 72100; 80053; 80061; 81003; 84443; 85025; 87798; 87801

== ENCOUNTER 2023-06-14 10:16 | Outpatient (REF) | payer OTHER, SELFPAY ==
--- NOTE | ~2023-06-14 | US_ITS ---
EXAMINATION: RIGHT LOWER EXTREMITY DEEP VENOUS ULTRASOUND CLINICAL INFORMATION: Other specified soft tissue disorders COMPARISON: None. TECHNIQUE: Duplex Doppler imaging with compression maneuvers were performed of the right lower extremity deep venous system. FINDINGS: The visualized common femoral, femoral and popliteal veins demonstrate normal compressibility and color flow without evidence of venous thrombosis. Visualized portions of the calf veins demonstrate normal color fill-in suggesting patency. There is no evidence of a Jensen's cyst. US/US venous duplex LE RT IMPRESSION: No evidence of deep venous thrombosis involving the right lower extremity.
== END 2023-06-14 10:17 | disposition home or self-care (01) ==
LOC: HO.US 10:16
PROVIDERS: Visit Provider Nurse Practitioner Family
DX: R60.0 Localized edema (principal)
CPT/HCPCS: 93971

== ENCOUNTER 2023-12-17 08:02 | Outpatient (AMB) | payer OTHER, SELFPAY ==
[2023-12-17 08:10] VITALS: BP 132/80; PULSE 105; TEMP 37.2; O2SAT 98; BMI 40.3
--- NOTE | 2023-12-17 08:10 | AM.OFFWIN_ITS ---
<Statement entered by Олег Hilton MD - 12/17/23 16:01> Blood work showed elevated WBC. Patient was contacted. Advised her to proceed to the Emergency Room. Patient agreed. She may need IV abx Intake Vital Signs 12/17/23 08:10 Height 5 ft 6 in Weight 250 lb BMI 40.3 BP 132/80 Blood Pressure Location Rt brachial Position Sitting Pulse 105 H Pulse Source Pulse Oximeter Temp 99.0 F Temp Source Oral Pulse Oximetry (%) 98 Intake Visit Reasons: EP Nausea vomiting, Diarrhea ?Swollen Lymph's Intake Note: pt is here for c.o sore throat, swollen glands unable to move neck since saturday with vomiting Patient Tobacco Use Status: Former Tobacco user Allergies Sulfa (Sulfonamide Antibiotics) Allergy (Unknown, Verified 12/17/23 08:12) Hives, hives, ulcers Medication List - Last Reconciled 12/17/23 by GUDELIA Johnson bupropion HCl 300 mg PO QAM 90 days buspirone 5 mg PO BID 90 days cetirizine (Zyrtec) 10 mg PO DAILY PRN doxycycline hyclate 100 mg PO BID 7 days omeprazole 40 mg PO DAILY 90 days ProAir HFA 90 mcg/actuation (albuterol sulfate) 2 puffs inhalation Q4-6H PRN NS sumatriptan succinate take 1 tab at onset of headache; if no relief may repeat 1 tab after at least 2 hrs; max = 4 tabs/24 hr PO Do you need a note to return to daycare/school/sports/work: Yes HPI HPI Comments History of Present Illness Details 38-year-old female presents complaining of sore throat anterior and lateral neck pain myalgias nausea and vomiting for 5 days. She tested for COVID at home and was negative. She denies cough shortness of breath or chest pain but does complain of total body myalgias with moderate to severe discomfort in her anterior and lateral neck. She states she had a positive fever at home of 101.7 and is 99 today [facility] Medical History Appendicitis Asthma Migraines Surgical History History of appendectomy History of lipoma History of tonsillectomy and adenoidectomy Family History Father HTN (hypertension) High cholesterol Substance use disorder Mother No problems noted. Brother HTN (hypertension) Anxiety High cholesterol Mental health disorder Brother Morbidly obese Maternal Grandmother No problems noted. Maternal Grandfather Heart disease Paternal Grandmother No problems noted. Paternal Grandfather No problems noted. Son No problems noted. Son No problems noted. Son No problems noted. Social History Housing: Apartment Alcohol intake: never Patient Tobacco Use Status: Former Tobacco user Years Smoked: quit 2005 e-Cigarette/Vaping Use: Never Used Second Hand Smoke Exposure: No service: No Current occupational status: employed Current occupation: [employer] Current occupational exposures/hazards: No Cognitive needs: No Hearing needs: No Vision needs: No Review of Systems Const Reports body aches, Reports chills, Reports fatigue, Reports fever(s) and Reports headache(s) ENT Reports headache(s), Reports nasal congestion and Reports nasal discharge GI Reports nausea and Reports vomiting Musc Reports myalgias Neuro Reports headache(s) Endo Reports fatigue Physical Exam Vital Signs: Last Vital Signs Temp 99.0 F 12/17/23 08:10 Pulse 105 H 12/17/23 08:10 BP 132/80 12/17/23 08:10 Pulse Ox 98 12/17/23 08:10 BMI result Body Mass Index 40.3 Const General: in distress (neck pain anterior and lateral with ROM) moderate and ill appearing Orientation/consciousness: oriented to person, oriented to place and oriented to time Limitations: no limitations HEENT Head: Yes normal to inspection, Yes normocephalic and Yes atraumatic Ears: hearing grossly normal bilaterally, external ears normal, TM's normal bilaterally, TM normal on the right, TM normal on the left and EAC's normal General nose exam: No nasal discharge present Face and sinus: Yes normal facial exam and Yes sinuses nontender Mouth: trismus and restricted motion Throat: Yes posterior oropharynx abnormal Eyes General: appearance normal, both eyes and all related structures Neck Neck: Yes normal visual inspection, Yes positive Brudzinski's sign and Yes tender (anterior and lateral, ,not posterior ) Lymphatic: lymphadenopathy (anterior and posterior ) Resp Auscultation: clear to auscultation bilaterally Cardio Rate: tachycardic (105) Rhythm: regular rhythm Neuro General: oriented to person, oriented to place and oriented to time Results AMB Rapid Strep AMB Rapid Strep Negative Last Edit by Nicholas Pickett CMA on 12/17/23 08 :34 Assessment & Plan Assessment & Plan (1) Neck pain: Code(s): M54.2 - Cervicalgia Plan: The patient was sent for CBC to determine her white count. Discuss this patient with Dr. King (2) Sore throat: Code(s): J02.9 - Acute pharyngitis, unspecified Plan: The patient was prescribed doxycycline. Plan The patient was instructed to have a low tolerance for reporting to the emergency room if her neck pain continues or becomes more severe. I discussed the potential of aseptic meningitis and the signs and symptoms to report d irectly to the emergency department Orders: Orders AMB Rapid Strep Screen Today Z13.9 - Encounter for screening, unspecified Complete Blood Count Auto Diff Today M54.2 - Cervicalgia SARS-CoV2/FLU/RSV Today R09.89 - Other specified symptoms and signs involving the circulatory and respiratory systems Medications: New doxycycline hyclate 100 mg PO BID 7 days 14 caps 0RF Coding Level of Care Code Est Pt Level 3 (41140) Diagnoses Neck pain M54.2 Sore throat J02.9 Time Spent (min) 20
== END 2023-12-17 09:41 | disposition home or self-care (01) ==
PROVIDERS: PCP Nurse Practitioner Family; Visit Provider Physician Assistant Medical
DX: M54.2 Cervicalgia (principal); J02.9 Acute pharyngitis, unspecified; Z13.9 Encounter for screening, unspecified
CPT/HCPCS: 87880; 99214

== ENCOUNTER 2023-12-17 08:51 | Outpatient (REF) | payer OTHER, SELFPAY ==
[2023-12-17 11:16] LABS: MANUAL DIFF FLAG NO
[2023-12-17 11:22] LABS: Basophils Absolute Auto 0.1 X10*3/uL (0.0-0.2); Basophils Percent Auto 0.3 % (0-2); Eosinophils Absolute Auto 0.3 X10*3/uL (0.0-0.4); Eosinophils Percent Auto 1.1 % (0-4); Hemoglobin 12.1 g/dl (12.0-16.0); Imm Gran Abs Auto 0.12 X10*3/uL (0.00-0.03); Imm Gran Pct Auto 0.5 % (0.0-0.4); Lymphocytes Absolute Auto 2.6 X10*3/uL (1.2-4.9); Lymphocytes Percent Auto 11.5 % (20-40); Mean Corpuscular HGB Conc 31.8 g/dl (31.0-35.0); Mean Corpuscular Hemoglobin 25.5 pg (27.0-33.0); Mean Corpuscular Volume 80.2 fL (80.0-98.0); Monocytes Absolute Auto 1.4 X10*3/uL (0.1-1.2); Monocytes Percent Auto 6.2 % (2-11); Neutrophils Percent Auto 80.4 % (45-73); Platelet Count 332 X10*3/uL (160-400); Red Blood Count 4.74 X10*6/uL (4.20-5.50); White Blood Count 22.4 X10*3/uL (4.8-10.8)
[2023-12-17 12:44] LABS: Influenza A PCR NEGATIVE (Negative); Influenza B PCR NEGATIVE (Negative); Resp Syncy Virus RNA Qual PCR NEGATIVE (Negative); SARS COV2 PCR INHOUSE NEGATIVE (Negative)
== END 2023-12-17 08:52 | disposition home or self-care (01) ==
LOC: HO.HMGCLDS 08:51
PROVIDERS: PCP Nurse Practitioner Family; Visit Provider Physician Assistant Medical
DX: Z11.52 Encounter for screening for COVID-19 (principal); Z20.822 Contact with and (suspected) exposure to COVID-19; R09.89 Other specified symptoms and signs involving the circulatory and respiratory systems; M54.2 Cervicalgia
CPT/HCPCS: 0241U; 36415; 85025

== ENCOUNTER 2023-12-17 16:58 | Emergency (ER) | payer OTHER, SELFPAY ==
[2023-12-17 17:01] VITALS: BP 128/81; PULSE 110; RESP 18; TEMP 36.7; O2SAT 98; BMI 39.3
--- NOTE | 2023-12-17 17:02 | ED.GENADULT ---
HPI - General Adult General Stated complaint: white blood cells high urgent care sent pt Related Data Home Medications Medication Instructions Recorded Confirmed cetirizine 10 mg tablet (Zyrtec) 10 mg PO DAILY PRN 04/16/23 12/17/23 Previous Rx's Medication Instructions Recorded ProAir HFA 90 mcg/actuation 2 puff inhalation Q4-6H PRN 04/17/23 aerosol inhaler (albuterol sulfate) shortness of breath or wheezing #8.5 grams sumatriptan succinate 50 mg tablet See Rx Instructions PO .COMPLEX 10/05/23 #12 tabs omeprazole 40 mg capsule,delayed 40 mg PO DAILY 90 days #90 caps 11/08/23 release bupropion HCl 300 mg 24 hr tablet, 300 mg PO QAM 90 days #90 tabs 11/21/23 extended release buspirone 5 mg tablet 5 mg PO BID 90 days #180 tabs 11/21/23 doxycycline hyclate 100 mg capsule 100 mg PO BID 7 days #14 caps 12/17/23 Allergies Allergy/AdvReac Type Severity Reaction Status Date / Time Sulfa (Sulfonamide Allergy Unknown Hives, Verified 12/17/23 08:12 Antibiotics) hives, ulcers PMFSH Past Medical History Medical History Appendicitis Asthma Migraines Surgical History History of appendectomy History of lipoma History of tonsillectomy and adenoidectomy Family History Family History Father HTN (hypertension) High cholesterol Substance use disorder Mother No problems noted. Brother HTN (hypertension) Anxiety High cholesterol Mental health disorder Brother Morbidly obese Maternal Grandmother No problems noted. Maternal Grandfather Heart disease Paternal Grandmother No problems noted. Paternal Grandfather No problems noted. Son No problems noted. Son No problems noted. Son No problems noted. Social History Social History Housing: Apartment Alcohol intake: never Patient Tobacco Use Status: Former Tobacco user Years Smoked: quit 2005 e-Cigarette/Vaping Use: Never Used Second Hand Smoke Exposure: No service: No Current occupational status: employed Current occupation: [employer] Current occupational exposures/hazards: No Cognitive needs: No Hearing needs: No Vision needs: No Course Course Course Narrative: Patient complains of sore throat nausea vomiting and diarrhea for 3 days Discharge Plan Discharge Prescriptions: No Action albuterol sulfate [ProAir HFA] 90 mcg/actuation HFA aerosol inhaler 2 puff inhalation Q4-6H PRN (Reason: shortness of breath or wheezing) Qty: 8.5 3RF sumatriptan succinate 50 mg tablet See Rx Instructions PO .COMPLEX Qty: 12 2RF Rx Instructions: take 1 tab at onset of headache; if no relief may repeat 1 tab after at least 2 hrs; max = 4 tabs/24 hr PO omeprazole 40 mg capsule,delayed release(DR/EC) 40 mg PO DAILY 90 Days Qty: 90 1RF buspirone 5 mg tablet 5 mg PO BID 90 Days Qty: 180 1RF bupropion HCl 300 mg tablet extended release 24 hr 300 mg PO QAM 90 Days Qty: 90 1RF doxycycline hyclate 100 mg capsule 100 mg PO BID 7 Days Qty: 14 0RF cetirizine [Zyrtec] 10 mg tablet 10 mg PO DAILY PRN
[2023-12-17] MEDS: Ondansetron ODT 4 MG TAB.RAPDIS TRANSLINGU (17:09)
[2023-12-17 17:21] LABS: MANUAL DIFF FLAG NO
[2023-12-17 17:23] LABS: Basophils Absolute Auto 0.1 X10*3/uL (0.0-0.2); Basophils Percent Auto 0.4 % (0-2); Eosinophils Absolute Auto 0.2 X10*3/uL (0.0-0.4); Eosinophils Percent Auto 1.1 % (0-4); Hematocrit 36.4 % (37.0-47.0); Imm Gran Abs Auto 0.11 X10*3/uL (0.00-0.03); Imm Gran Pct Auto 0.6 % (0.0-0.4); Lymphocytes Absolute Auto 2.9 X10*3/uL (1.2-4.9); Lymphocytes Percent Auto 15.3 % (20-40); Mean Corpuscular Hemoglobin 25.8 pg (27.0-33.0); Mean Corpuscular Volume 78.3 fL (80.0-98.0); Mean Platelet Volume 8.8 fL (9.4-12.3); Monocytes Absolute Auto 1.3 X10*3/uL (0.1-1.2); Monocytes Percent Auto 7.1 % (2-11); Neutrophils Absolute Auto 14.1 x10*3/uL (2.0-8.3); Neutrophils Percent Auto 75.5 % (45-73); Platelet Count 326 X10*3/uL (160-400); Red Blood Count 4.65 X10*6/uL (4.20-5.50); White Blood Count 18.7 X10*3/uL (4.8-10.8)
[2023-12-17 17:32] LABS: IDNOW Serial# 58CA691E; Strep A Nucleic Acid Positive (Negative)
[2023-12-17 17:36] LABS: Alanine Aminotransferase 33 U/L (0-31); Albumin Level 4.3 g/dL (3.5-5.0); Alkaline Phosphatase 73 U/L (39-117); Anion Gap 13 (12-20); Aspartate Amino Transferase 23 U/L (5-31); Bilirubin Direct 0.3 mg/dL (0.0-0.5); Bilirubin Total 0.3 mg/dL (0.0-1.0); Blood Urea Nitrogen 12 mg/dL (9-16); COVID-19 Test Negative (Negative); Calcium 10.2 mg/dL (8.4-10.2); Carbon Dioxide 25 mmol/L (22-29); Chloride 105 mmol/L (96-108); Creatinine Clr Calc Pharmacy 132.9; Estimated Glomerular Filt Rate > 60; Glucose Random 101 mg/dL (60-115); IDNOW Serial# 6674DD1D; Lipase 34 U/L (8-78); Potassium 3.7 mmol/L (3.3-5.1); Sodium 139 mmol/L (135-145); Total Protein 8.3 g/dL (6.5-8.0)
[2023-12-17 17:38] LABS: IDNOW Serial# 9DB6401D; Influenza A Negative (Negative); Influenza B2 Negative (Negative)
[2023-12-17 20:02] LABS: Appearance Urine Clear; Color Urine Dark Yellow; Glucose Urine UA Negative (Negative); Leukocyte Esterase Urine Negative (Negative); Nitrite Urine Negative (Negative); PH 5.5 (5.0-9.0); Specific Gravity - Urine >= 1.030 (1.005-1.025); Urine Blood Negative (Negative); Urine Ketones Trace mg/dL (Negative); Urine Protein Trace mg/dL (Neg-Trace)
[2023-12-17 20:03] LABS: UPreg QC Valid YES; Urine Pregnancy NEGATIVE (NEGATIVE)
[2023-12-17 21:52] VITALS: BP 142/74; PULSE 105; RESP 18; TEMP 36.9; O2SAT 97
== END 2023-12-17 22:11 | disposition left against medical advice (07) ==
PROVIDERS: Physician Assistant Medical; Emergency Provider Emergency Medicine; PCP Nurse Practitioner Family
DX: D72.829 Elevated white blood cell count, unspecified (principal); J02.9 Acute pharyngitis, unspecified; Z79.899 Other long term (current) drug therapy; Z11.52 Encounter for screening for COVID-19
CPT/HCPCS: 36415; 80048; 80076; 81003; 81025; 83690; 85025; 87502; 87635; 87651; 99282; 99283

== ENCOUNTER 2023-12-18 08:11 | Outpatient (AMB) | payer OTHER, SELFPAY ==
--- NOTE | 2023-12-18 08:23 | AM.OFFWIN_ITS ---
Intake Vital Signs 12/18/23 08:24 Height 5 ft 6 in Weight 243 lb BMI 39.2 BP 132/80 Blood Pressure Location Lt brachial Position Sitting Pulse 102 H Pulse Source Pulse Oximeter Temp 98.4 F Temp Source Oral Pulse Oximetry (%) 97 Oxygen Delivery Method Room Air Intake Visit Reasons: EP Strep throat [id number] Intake Note: pt is here for c/o positive strep throat culture, was at ED yesterday and was informed the medication that was given to her yesterday wouldn't work for the strep and she also has a concern of the uvula is swollen. Patient Tobacco Use Status: Former Tobacco user Allergies Sulfa (Sulfonamide Antibiotics) Allergy (Unknown, Verified 12/18/23 08:50) Hives, hives, ulcers Medication List - Last Reconciled 12/18/23 by Олег Hilton MD bupropion HCl 300 mg PO QAM 90 days buspirone 5 mg PO BID 90 days cetirizine (Zyrtec) 10 mg PO DAILY PRN omeprazole 40 mg PO DAILY 90 days ProAir HFA 90 mcg/actuation (albuterol sulfate) 2 puffs inhalation Q4-6H PRN NS sumatriptan succinate take 1 tab at onset of headache; if no relief may repeat 1 tab after at least 2 hrs; max = 4 tabs/24 hr PO Do you need a note to return to daycare/school/sports/work: Yes HPI EP Strep throat [id number] HPI Details 38-year-old female presents to the [facility] e for a sick visit. Patient was seen yesterday for neck pain, headache and sore throat. She had an elevated white count with neck stiffness and was instructed to proceed to the emergency room. There was an 8 hour wait and patient left without being seen. However she had blood work and a rapid strep test done. According to the patient her rapid strep test was positive. She is unable to tolerate the doxycycline prescribed. This morning her own life is swollen. [facility] Medical History Appendicitis Asthma Migraines Surgical History History of appendectomy History of lipoma History of tonsillectomy and adenoidectomy Family History Father HTN (hypertension) High cholesterol Substance use disorder Mother No problems noted. Brother HTN (hypertension) Anxiety High cholesterol Mental health disorder Brother Morbidly obese Maternal Grandmother No problems noted. Maternal Grandfather Heart disease Paternal Grandmother No problems noted. Paternal Grandfather No problems noted. Son No problems noted. Son No problems noted. Son No problems noted. Social History Housing: Apartment Alcohol intake: never Patient Tobacco Use Status: Former Tobacco user Years Smoked: quit 2005 e-Cigarette/Vaping Use: Never Used Second Hand Smoke Exposure: No service: No Current occupational status: employed Current occupation: [employer] Current occupational exposures/hazards: No Cognitive needs: No Hearing needs: No Vision needs: No Physical Exam Vital Signs: Last Vital Signs Temp 98.4 F 12/18/23 08:24 Pulse 102 H 12/18/23 08:24 BP 132/80 12/18/23 08:24 Pulse Ox 97 12/18/23 08:24 Oxygen Delivery Method Room Air 12/18/23 08:24 BMI result Body Mass Index 39.2 Const General: cooperative and healthy appearing Nutritional Appearance: well nourished Orientation/consciousness: patient oriented x3 Limitations: no limitations HEENT Other: Oral cavity: Swollen uvula. Head: Yes normal to inspection Eyes General: appearance normal, both eyes and all related structures Neck Neck: Yes normal visual inspection Chest Chest palpation & inspection: normal palpation of entire chest wall Resp Effort & Inspection: normal respiratory effort Neuro General: patient oriented x3 Assessment & Plan Assessment & Plan (1) Sore throat: Code(s): J02.9 - Acute pharyngitis, unspecified Plan: Azithromycin and prednisone called in. Patient was encouraged to do saltwater gargling. If symptoms do not improve to follow-up here. Coding Level of Care Code Est Pt Level 3 (53978) Diagnoses Sore throat J02.9
[2023-12-18 08:24] VITALS: BP 132/80; PULSE 102; TEMP 36.9; O2SAT 97; BMI 39.2
== END 2023-12-18 08:58 | disposition home or self-care (01) ==
PROVIDERS: PCP Nurse Practitioner Family; Visit Provider Internal Medicine
DX: J02.9 Acute pharyngitis, unspecified (principal)
CPT/HCPCS: 99213

== ENCOUNTER 2024-06-01 08:04 | Outpatient (REF) | payer OTHER, SELFPAY ==
[2024-06-01 10:07] LABS: MANUAL DIFF FLAG NO
[2024-06-01 10:19] LABS: Basophils Absolute Auto 0.1 X10*3/uL (0.0-0.2); Basophils Percent Auto 0.8 % (0-2); Eosinophils Absolute Auto 0.4 X10*3/uL (0.0-0.4); Hematocrit 37.2 % (37.0-47.0); Imm Gran Abs Auto 0.03 X10*3/uL (0.00-0.03); Imm Gran Pct Auto 0.4 % (0.0-0.4); Lymphocytes Absolute Auto 2.1 X10*3/uL (1.2-4.9); Lymphocytes Percent Auto 25.8 % (20-40); Mean Corpuscular HGB Conc 32.3 g/dl (31.0-35.0); Mean Corpuscular Hemoglobin 25.8 pg (27.0-33.0); Mean Corpuscular Volume 79.8 fL (80.0-98.0); Mean Platelet Volume 9.4 fL (9.4-12.3); Monocytes Absolute Auto 0.6 X10*3/uL (0.1-1.2); Monocytes Percent Auto 7.5 % (2-11); Neutrophils Percent Auto 60.5 % (45-73); Platelet Count 372 X10*3/uL (160-400); Red Blood Count 4.66 X10*6/uL (4.20-5.50); Red Cell Distribution Width 14.1 % (11.0-16.0); White Blood Count 8.3 X10*3/uL (4.8-10.8)
[2024-06-01 10:24] LABS: Appearance Urine Clear; Color Urine Yellow; Glucose Urine UA Negative (Negative); Leukocyte Esterase Urine Negative (Negative); Nitrite Urine Negative (Negative); PH 6.5 (5.0-9.0); Urine Blood Negative (Negative); Urine Ketones Negative (Negative); Urine Protein Negative (Neg-Trace)
[2024-06-01 10:44] LABS: Alanine Aminotransferase 29 U/L (0-31); Albumin Level 4.3 g/dL (3.5-5.0); Alkaline Phosphatase 54 U/L (39-117); Anion Gap 12 (12-20); Aspartate Amino Transferase 22 U/L (5-31); Bilirubin Total 0.2 mg/dL (0.0-1.0); Blood Urea Nitrogen 16 mg/dL (9-16); Calcium 9.5 mg/dL (8.4-10.2); Carbon Dioxide 25 mmol/L (22-29); Chloride 106 mmol/L (96-108); Cholesterol 202 mg/dL (<200); Estimated Glomerular Filt Rate > 60; Glucose Fasting 100 mg/dL (60-99); HDL Cholesterol 53 mg/dL (>40); LDL Cholesterol Calculated 114 mg/dL (<100); Sodium 139 mmol/L (135-145); Total Protein 7.4 g/dL (6.5-8.0); Triglycerides 179 mg/dL (<150)
[2024-06-01 11:01] LABS: TSH reflex Free T4 1.77 uIU/mL (0.32-4.0)
== END 2024-06-01 08:05 | disposition home or self-care (01) ==
LOC: HO.HMGCLDS 08:04
PROVIDERS: PCP Nurse Practitioner Family; Visit Provider Nurse Practitioner Family
DX: Z00.00 Encounter for general adult medical examination without abnormal findings (principal); D75.839 Thrombocytosis, unspecified
CPT/HCPCS: 36415; 80053; 80061; 81003; 84443; 85025

== ENCOUNTER 2024-06-03 08:10 | Outpatient (AMB) | payer OTHER, SELFPAY ==
--- NOTE | 2024-06-03 08:15 | MHC.PC.OV ---
Vital Signs 06/03/24 08:16 Height 5 ft 6 in Weight 248 lb BMI 40.0 BP 120/90 H Blood Pressure Location Lt brachial Position Sitting Pulse 98 Pulse Source Pulse Oximeter Pulse Oximetry (%) 98 Oxygen Delivery Method Room Air Intake Visit Reasons: PE Intake Note: Patient here for physical exam. Pap: 2021-overdue Allergies Sulfa (Sulfonamide Antibiotics) Allergy (Unknown, Verified 06/03/24 08:17) Hives, hives, ulcers doxycycline Adverse Reaction (Intermediate, Verified 06/03/24 08:17) Nausea Medication List - Last Reconciled 06/03/24 by STELLA Dobbs lulhnxu-prannljjvsdku-afcbphvy 250-250-65 mg (Excedrin Extra Strength) 1 tab PO Q4-6H PRN buspirone 5 mg PO BID 90 days cetirizine (Zyrtec) 10 mg PO DAILY PRN omeprazole 40 mg PO DAILY 90 days ProAir HFA 90 mcg/actuation (albuterol sulfate) 2 puffs inhalation Q4-6H PRN NS sumatriptan succinate take 1 tab at onset of headache; if no relief may repeat 1 tab after at least 2 hrs; max = 4 tabs/24 hr PO Tobacco use date assessed: 06/03/24 Dental Screening Dental Screen Date: 06/03/24 Did you have a dental visit in the last 12 months?: Yes Did you have a dental problem in the last 6 months where you did not have access to dental care?: No Was dental information given to patient?: Patient has dentist HPI PE HPI Details Pt is here for a PE. Labs were already performed. Pt's lipids were noted to be elevated. Will repeat labs in 2 months. Pt will work on her diet. Slight elevation of BP today. Pt reported just getting off the phone with work, was frustrated. [facility] Medical History Migraines Appendicitis Asthma Surgical History History of lipoma History of appendectomy History of tonsillectomy and adenoidectomy Family History Father HTN (hypertension) High cholesterol Substance use disorder Mother No problems noted. Brother HTN (hypertension) Anxiety High cholesterol Mental health disorder Brother Morbidly obese Maternal Grandmother No problems noted. Maternal Grandfather Heart disease Paternal Grandmother No problems noted. Paternal Grandfather No problems noted. Son No problems noted. Son No problems noted. Son No problems noted. Social History Housing: Apartment Alcohol intake: never Patient Tobacco Use Status: Former Tobacco user Years Smoked: quit 2005 e-Cigarette/Vaping Use: Never Used Second Hand Smoke Exposure: No service: No Current occupational status: employed Current occupation: [employer] Current occupational exposures/hazards: No Cognitive needs: No Hearing needs: No Vision needs: No Questionnaire PHQ-9 Over the last 2 weeks, how often have you been bothered by any of the following problems? 1. Little interest or pleasure in doing things: not at all 2. Feeling down, depressed, or hopeless: not at all 3. Trouble falling or staying asleep, or sleeping too much: nearly every day 4. Feeling tired or having little energy: nearly every day 5. Poor appetite or overeating: nearly every day 6. Feeling bad about yourself - or that you are a failure or have let yourself or your family down: not at all 7. Trouble concentrating on things, such as reading the newspaper or watching television: nearly every day 8. Moving or speaking so slowly that other people could have noticed. Or the opposite - being so fidgety or restless that you have been moving around a lot more than usual: not at all 9. Thoughts that you would be better off or of hurting yourself in some way: not at all Total score: 12 Depression Screening Interpretation: Positive (will have celio (BH) reach out to pt, denies any SI or HI) Depression Screening Follow-up: Existing condition Depression Screening Done: Yes 13795 - PHQ-9 Billing: Yes Source: Developed by Drs. Ross Amor, Danisha Beck, Keyon Zhang and colleagues, with an educational coretta from [employer]. Thrive Questionnaire Date Thrive assessed: 12/11/21 I am a: Patient What is your living situation today?: I have a steady place to live Within the past 12 months, did the food you bought not last and you didn't have the money to get more?: Never true Within the past 12 months, did you worry whether your food would run out before you got money to buy more?: Never true Do you have trouble paying for medicines?: No Do you have trouble getting transportation to medical appointments?: No Do you have trouble paying your heating and electricity bill?: No Do you have trouble taking care of your child, family member or friend?: No Do you have trouble with day-to-day activities such as bathing, preparing meals, shopping, managing finances, etc.?: No Are you currently unemployed and looking for a job?: No Are you interested in more education?: No Please select the resources that you would like help with: Housing/Fdc Currently or been in a relationship where the following occur: No concerns reported THRIVE Score: 0 AUDIT C Alcohol Use Questionnaire (AUDIT-C) 1. How often do you have a drink containing alcohol?: Monthly or less 2. How many drinks containing alcohol do you have on a typical day when you are drinking?: 1 or 2 3. How often do you have six or more drinks on one occasion?: Never Total Score: 1 CASEY-7 AMB Questionnaire CASEY-7 Date CASEY - 7 assessed: 06/03/24 Feeling nervous, anxious, or on edge: 2 = More than half the days Not being able to stop or control worryin = More than half the days Worrying too much about different things: 1 = Several days Trouble relaxin = Not at all Being so restless that it is hard to sit still: 1 = Several days Becoming easily annoyed or irritable: 0 = Not at all Feeling afraid as if something awful might happen: 0 = Not at all Total CASEY-7 score (0-4 normal; 5-9 mild; 10-14 moderate; 15-21 severe): 6 Source: Developed by Drs. Ross Amor, Danisha Beck, Keyon Zhang and colleagues, with an educational coretta from [employer] CASEY-7 Assessment Billing CASEY-7 Assessment Tool: CASEY-7 Assessment 18510 Review of Systems Const Denies chills and Denies fever(s) Eyes Denies blurry vision ENT Denies vertigo, Denies dizziness and Denies sore throat Card Denies chest pain at rest, Denies chest pain with activity, Denies diaphoresis, Denies dyspnea and Denies dyspnea on exertion Resp Denies cough, Denies dyspnea, Denies dyspnea on exertion and Denies wheezing GI Denies abdominal pain, Denies melena, Denies hematochezia, Denies constipation, Denies diarrhea and Denies loose stools Denies hematuria Musc Denies numbness and Denies tingling Skin/Breast Denies lesions Neuro Denies vertigo, Denies dizziness, Denies numbness and Denies tingling Psych Denies anxiety, Denies depression, Denies homicidal ideation, Denies suicidal ideation and Denies other (substance abuse) Aller/Immun Denies wheezing Physical exam (Primary Care) Vital Signs: Last Vital Signs Pulse 98 06/03/24 08:16 BP 120/90 H 06/03/24 08:16 Pulse Ox 98 06/03/24 08:16 Oxygen Delivery Method Room Air 06/03/24 08:16 BMI result Body Mass Index 40.0 Tobacco/Smoking Status: Tobacco use Status Tobacco use date assessed 06/03/24 06/03/24 08:20 Patient Tobacco Use Status Former Tobacco user 06/03/24 08:16 e-Cigarette/Vaping Use Never Used 06/03/24 08:16 PHQ-9: PHQ-9 Score PHQ-9: Total score 12 06/03/24 08:20 Depression Screening Interpretation: Positive (will have celio (AMBREEN) reach out to pt, denies any SI or HI) Depression Screening Follow-up: Existing condition Thrive Assessment: Date of Thrive Assessment Date Thrive assessed 12/11/21 06/03/24 08:16 Currently or been in a relationship where the following occur: No concerns reported Const General: cooperative Nutritional Appearance: obese Orientation/consciousness: patient oriented x3 HENMT Head: Yes normal to inspection, Yes normocephalic and Yes atraumatic Ears: TM's normal bilaterally Eyes General: appearance normal, both eyes and all related structures Alignment and Position: alignment normal and position normal Neck Neck: Yes normal visual inspection and Yes no lymphadenopathy Thyroid: Thyroid normal Resp Effort & Inspection: normal respiratory effort Auscultation: clear to auscultation bilaterally Cardio Rate: regular rate Rhythm: regular rhythm Heart sounds: S1 normal heart sound present, S2 normal heart sound present and no murmurs GI Palpation (GI): Soft to palpation and nontender Auscultation: normal bowel sounds Skin Rashes: no rashes Neuro General: patient oriented x3, moves all extremities, no focal motor deficits and deep tendon reflexes 2+ bilaterally Romberg Test: Negative Psych Appearance: grossly normal Mental Status: mental status grossly normal Speech and movement: Normal speech and movement present Affect: normal affect Attitude: cooperative Thought process: Normal thought process present Thought content: Normal thought content present Insight: Good insight present (Psych) Judgement: Good judgement present (Psych) Assessment and Plan Assessment & Plan (1) Dyslipidemia: Code(s): E78.5 - Hyperlipidemia, unspecified Plan: Repeat labs ordered (2) Encounter for routine adult physical exam with abnormal findings: Code(s): Z00.01 - Encounter for general adult medical examination with abnormal findings Plan: Labs already performed (3) Obesity: Code(s): E66.9 - Obesity, unspecified Plan: Pt will work on diet Plan The patient agreed to the use of a clinical laboratory medical director for this encounter. Scribed for SAUL Scott by oNhelia Henson clinical laboratory medical director, on 06/03/2024 at 08:40 EST. Orders: Orders Comprehensive [place]. Panel Fast Today E78.5 - Hyperlipidemia, unspecified Lipid Panel Today E78.5 - Hyperlipidemia, unspecified Coding Level of Care Code Est Pt Prev Care 18-39y(43557) Diagnoses Dyslipidemia E78.5 Encounter for routine adult physical exam with abnormal findings Z00.01 Obesity E66.9 Additional Codes CASEY-7 Assessment Billing - CASEY-7 Assessment Tool: CASEY-7 Assessment 57783 ([id number])
[2024-06-03 08:16] VITALS: BP 120/90; PULSE 98; O2SAT 98; BMI 40.0
== END 2024-06-03 08:55 | disposition home or self-care (01) ==
PROVIDERS: PCP Nurse Practitioner Family; Visit Provider Nurse Practitioner Family
DX: Z00.00 Encounter for general adult medical examination without abnormal findings (principal); Z68.41 Body mass index [BMI] 40.0-44.9, adult; E78.5 Hyperlipidemia, unspecified; E66.9 Obesity, unspecified
CPT/HCPCS: 99395

== ENCOUNTER 2024-07-13 08:21 | Outpatient (AMB) | payer OTHER, SELFPAY ==
--- NOTE | 2024-07-13 09:16 | AM.OFFWIN_ITS ---
Intake Vital Signs 07/13/24 09:17 Height 5 ft 6 in Weight 250 lb BMI 40.3 BP 126/84 Blood Pressure Location Rt brachial Position Sitting Pulse 96 Pulse Source Pulse Oximeter Temp 98.2 F Temp Source Oral Pulse Oximetry (%) 98 Oxygen Delivery Method Room Air Intake Visit Reasons: EP swollen uvula Intake Note: pt c/o swollen uvula. No throat pain, cough. Started this morning Patient Tobacco Use Status: Former Tobacco user Allergies Sulfa (Sulfonamide Antibiotics) Allergy (Unknown, Verified 07/13/24 09:16) Hives, hives, ulcers doxycycline Adverse Reaction (Intermediate, Verified 07/13/24 09:16) Nausea Do you need a note to return to daycare/school/sports/work: No HPI HPI Comments History of Present Illness Details Patient is a 38-year-old female complaining of uvular swelling. She states every time she gets sick, she can feel her uvula swell right before she gets sick. She can feel it on the back of her throat, she denies any problems with swallowing, pain with swallowing, she denies any issues handling her own secretions or breathing. She states she does have anxiety and the 1st time it happened, it did give her a great deal of anxiety but now she knows what it is and usually prednisone take down the swelling right away so she is asking for a prescription for prednisone today. She denies any fevers, cough but does admit to a little bit of fatigue [facility] Medical History Migraines Appendicitis Asthma Surgical History History of lipoma History of appendectomy History of tonsillectomy and adenoidectomy Family History Father HTN (hypertension) High cholesterol Substance use disorder Mother No problems noted. Brother HTN (hypertension) Anxiety High cholesterol Mental health disorder Brother Morbidly obese Maternal Grandmother No problems noted. Maternal Grandfather Heart disease Paternal Grandmother No problems noted. Paternal Grandfather No problems noted. Son No problems noted. Son No problems noted. Son No problems noted. Social History Housing: Apartment Alcohol intake: never Patient Tobacco Use Status: Former Tobacco user Years Smoked: quit 2005 e-Cigarette/Vaping Use: Never Used Second Hand Smoke Exposure: No service: No Current occupational status: employed Current occupation: [employer] Current occupational exposures/hazards: No Cognitive needs: No Hearing needs: No Vision needs: No Review of Systems Const All systems reviewed & are unremarkable except as noted in HPI and below Physical Exam Vital Signs: Last Vital Signs Temp 98.2 F 07/13/24 09:17 Pulse 96 07/13/24 09:17 BP 126/84 07/13/24 09:17 Pulse Ox 98 07/13/24 09:17 Oxygen Delivery Method Room Air 07/13/24 09:17 BMI result Body Mass Index 40.3 Const General: cooperative, healthy appearing, comfortable and no acute distress Orientation/consciousness: patient oriented x3 Limitations: no limitations HEENT Head: Yes normal to inspection Ears: hearing grossly normal bilaterally, external ears normal and TM's normal bilaterally General nose exam: Normal external nose present, Normal nares present and No nasal discharge present Face and sinus: Yes normal facial exam and Yes sinuses nontender Mouth: Normal oral and palatal mucosa present and moist mucous membranes Throat: Yes tonsils normal, Yes uvula midline, Yes posterior oropharynx abnormal (Erythema) and Yes uvular edema (slight, also erythematous) Eyes General: appearance normal, both eyes and all related structures Neck Neck: Yes normal visual inspection Resp Effort & Inspection: normal respiratory effort, able to speak in complete sentences, no respiratory distress, not tachypneic, no tripod positioning and no use of accessory muscles Skin General skin exam: no rashes or lesions noted Neuro General: patient oriented x3 Extrem General: Yes normal to inspection and Yes no clubbing, cyanosis or edema Assessment & Plan Assessment & Plan (1) Uvular swelling: Code(s): K13.79 - Other lesions of oral mucosa Plan: As patient feels like her uvula is swollen and it is slightly swollen and erythematous on exam, sent prednisone to pharmacy. Plan see plan Orders: Orders SARS-CoV2/FLU/RSV Today J06.9 - Acute upper respiratory infection, unspecified Medications: New prednisone 20 mg PO DAILY 5 tabs 0RF Coding Level of Care Code Est Pt Level 3 (29929) Diagnoses Uvular swelling K13.79
[2024-07-13 09:17] VITALS: BP 126/84; PULSE 96; TEMP 36.8; O2SAT 98; BMI 40.3
== END 2024-07-13 09:37 | disposition home or self-care (01) ==
PROVIDERS: PCP Nurse Practitioner Family; Visit Provider Physician Assistant
DX: K13.79 Other lesions of oral mucosa (principal)
CPT/HCPCS: 99213

== ENCOUNTER 2024-07-13 13:41 | Outpatient (REF) | payer OTHER, SELFPAY ==
[2024-07-13 14:52] LABS: Influenza A PCR NEGATIVE (Negative); Influenza B PCR NEGATIVE (Negative); Resp Syncy Virus RNA Qual PCR NEGATIVE (Negative); SARS COV2 PCR INHOUSE NEGATIVE (Negative)
== END 2024-07-13 13:42 | disposition home or self-care (01) ==
LOC: HO.LNP 13:41
PROVIDERS: Visit Provider Physician Assistant
DX: J06.9 Acute upper respiratory infection, unspecified (principal)
CPT/HCPCS: 0241U

== ENCOUNTER 2024-09-14 13:15 | Outpatient (AMB) | payer OTHER, SELFPAY ==
--- NOTE | 2024-09-14 13:18 | MHC.OFFWIV ---
Intake Vital Signs 09/14/24 13:19 Weight 247 lb BP 120/90 H Blood Pressure Location Rt brachial Position Sitting Pulse 93 Pulse Source Pulse Oximeter Temp 98.4 F Temp Source Oral Pulse Oximetry (%) 98 Oxygen Delivery Method Room Air Intake Visit Reasons: EP cough for a couple of weeks Intake Note: Patient here for cough that has been present since the beginning of august, she states in the past couple of days she has developed SOB and has been using inhalers. Patient Tobacco Use Status: Former Tobacco user Allergies Sulfa (Sulfonamide Antibiotics) Allergy (Unknown, Verified 09/14/24 13:23) Hives, hives, ulcers doxycycline Adverse Reaction (Intermediate, Verified 09/14/24 13:23) Nausea Do you need a note to return to daycare/school/sports/work: No HPI EP cough for a couple of weeks HPI Details This note is constructed using voice recognition software. While every effort has been made to ensure accuracy, analytical engineer errors may have been included. The patient is a 38 year old female who presents to the clinic today with cough for the past 1 month. She reports that she developed an upper respiratory infection about 1 month ago, at which time she was coughing. She continues to cough, without improvement. She is getting up thick green secretions occasionally with use of Mucinex. She reports some mild dyspnea, worse with activity. She denies fever, chills, sinus congestion, ear pain. She reports that 4 years ago she was diagnosed with asthma, and has been taking Advair but she did not feel that it helped so she stopped taking the medication about 2 years ago. She had an albuterol inhaler that she was using with this event, but she did not feel that this was helping her symptoms. [facility] Medical History Migraines Appendicitis Asthma Surgical History History of lipoma History of appendectomy History of tonsillectomy and adenoidectomy Family History Father HTN (hypertension) High cholesterol Substance use disorder Mother No problems noted. Brother HTN (hypertension) Anxiety High cholesterol Mental health disorder Brother Morbidly obese Maternal Grandmother No problems noted. Maternal Grandfather Heart disease Paternal Grandmother No problems noted. Paternal Grandfather No problems noted. Son No problems noted. Son No problems noted. Son No problems noted. Social History (Reviewed 06/03/24 @ 09:29 by Casper Carey, [facility] [place]) Housing: Apartment Alcohol intake: never Patient Tobacco Use Status: Former Tobacco user Years Smoked: quit 2005 e-Cigarette/Vaping Use: Never Used Second Hand Smoke Exposure: No service: No Current occupational status: employed Current occupation: [employer] Current occupational exposures/hazards: No Cognitive needs: No Hearing needs: No Vision needs: No Review of Systems Const All systems reviewed & are unremarkable except as noted in HPI and below Physical Exam Vital Signs: Last Vital Signs Temp 98.4 F 09/14/24 13:19 Pulse 93 09/14/24 13:19 BP 120/90 H 09/14/24 13:19 Pulse Ox 98 09/14/24 13:19 Oxygen Delivery Method Room Air 09/14/24 13:19 Const General: cooperative, healthy appearing, comfortable and no acute distress Orientation/consciousness: patient oriented x3 Limitations: no limitations HEENT Head: Yes normal to inspection Ears: hearing grossly normal bilaterally, external ears normal and TM's normal bilaterally General nose exam: Normal external nose present, Normal nares present and No nasal discharge present Face and sinus: Yes normal facial exam and Yes sinuses nontender Mouth: Normal oral and palatal mucosa present and moist mucous membranes Throat: Yes posterior oropharynx normal, Yes tonsils normal and Yes uvula midline Eyes General: appearance normal, both eyes and all related structures Neck Neck: Yes normal visual inspection Resp Effort & Inspection: normal respiratory effort, able to speak in complete sentences, Actively coughing, no respiratory distress, not tachypneic, no tripod positioning and no use of accessory muscles Auscultation: clear to auscultation bilaterally (But tight sounding) Cardio Jugular venous distension: no JVD Rate: regular rate Rhythm: regular rhythm Heart sounds: S1 normal heart sound present, S2 normal heart sound present, no click, no gallops, no murmurs and no rubs Skin General skin exam: no rashes or lesions noted, elasticity normal and turgor normal Neuro General: patient oriented x3 Extrem General: Yes normal to inspection and Yes no clubbing, cyanosis or edema Assessment & Plan Assessment & Plan (1) Asthma exacerbation: Code(s): J45.901 - Unspecified asthma with (acute) exacerbation Qualifiers: Asthma severity: mild Asthma persistence: intermittent Qualified Code(s): J45.21 - Mild intermittent asthma with (acute) exacerbation Plan: Albuterol inhaler prescribed so that she has 1 that is not . Reviewed appropriate use of albuterol inhaler. Additionally we will try a prednisone burst for symptomatic management. Advised patient to follow up with her PCP for ongoing management of her asthma. Advised follow up with worsening or failure to resolve. Plan See above for full details and plan. Medications: New albuterol sulfate 90 mcg/actuation (Ventolin HFA) 1 to 2 inhaled every 6 hours PRN; 6.7 grams 0RF shortness of breath or wheezing prednisone 40 mg (2 x 20 mg) PO DAILY 5 days 10 tabs 0RF Coding Level of Care Code Est Pt Level 3 (15589) Diagnoses Mild intermittent asthma with exacerbation J45.21 Asthma severity: mild Asthma persistence: intermittent
[2024-09-14 13:19] VITALS: BP 120/90; PULSE 93; TEMP 36.9; O2SAT 98
== END 2024-09-14 14:05 | disposition home or self-care (01) ==
PROVIDERS: PCP Nurse Practitioner Family; Visit Provider Registered Nurse
DX: J45.21 Mild intermittent asthma with (acute) exacerbation (principal)

== ENCOUNTER → 2024-09-14 13:15 | Outpatient (BNVA) | payer OTHER, SELFPAY | PROVIDERS: PCP Nurse Practitioner Family; Visit Provider Registered Nurse | DX: J45.21 Mild intermittent asthma with (acute) exacerbation (principal) | CPT/HCPCS: 99212 ==

== ENCOUNTER 2024-09-17 08:04 | Outpatient (REF) | payer OTHER, SELFPAY ==
--- NOTE | ~2024-09-17 | XR_ITS ---
EXAMINATION: XR CHEST CLINICAL INFORMATION: Cough, unspecified COMPARISON: December 2019. TECHNIQUE: 2 views of the chest were obtained. Rotation to the right. FINDINGS: No airspace consolidation or pneumothorax seen. Pulmonary vascularity and hilar regions unremarkable. Pleural surfaces appear clear. There are minimal thoracic spondylitic changes. XR/XR chest 2V IMPRESSION: No evidence for acute process. Electronically signed by: Mustapha Pablo MD 09/17/2024 10:43 AM [facility]BINA
== END 2024-09-17 08:05 | disposition home or self-care (01) ==
LOC: HO.HMGCX 08:04
PROVIDERS: PCP Nurse Practitioner Family; Visit Provider Physician Assistant
DX: R05.9 Cough, unspecified (principal); J22 Unspecified acute lower respiratory infection
CPT/HCPCS: 71046; 99212

== ENCOUNTER 2024-09-17 08:04 | Outpatient (AMB) | payer OTHER, SELFPAY ==
[2024-09-17 08:11] VITALS: BP 130/80; PULSE 110; TEMP 36.7; O2SAT 98; BMI 39.9
--- NOTE | 2024-09-17 08:11 | AM.OFFWIN_ITS ---
Intake Vital Signs 09/17/24 08:11 09/17/24 08:52 Height 5 ft 6 in Weight 247 lb BMI 39.9 BP 130/80 Blood Pressure Location Rt brachial Position Sitting Pulse 110 H 101 H Pulse Source Pulse Oximeter Pulse Oximeter Temp 98.1 F Temp Source Oral Pulse Oximetry (%) 98 Intake Visit Reasons: EP cough, migraine from prednisone Intake Note: pt is here for cough, and migraine from prednisone Patient Tobacco Use Status: Former Tobacco user Allergies Sulfa (Sulfonamide Antibiotics) Allergy (Unknown, Verified 09/17/24 08:11) Hives, hives, ulcers doxycycline Adverse Reaction (Intermediate, Verified 09/17/24 08:11) Nausea Do you need a note to return to daycare/school/sports/work: Yes HPI HPI Comments History of Present Illness Details Patient is a 38-year-old female with a past medical history of asthma complaining a productive cough with green sputum for a couple of weeks. She tells me she came to this clinic 2 days ago and was given a prescription of 40 mg of prednisone daily for 5 days. She took it the 1st day and got a terrible migraine. She took it the 2nd day and got another terrible migraine that she describes as ?the worst headache of her life . She tells me that it resolved at 04:00 o'clock this morning and she just took some Excedrin because she can feel it coming back on. She thinks it might be from the prednisone. She tells me she still has sinus pain ringing in her ears, shortness of breath and she can hear herself wheeze. She denies any fevers. Patient tells me she does have an albuterol inhaler but no longer takes the Advair she was prescribed when originally diagnosed with asthma during [facility]. She tells me she is also taking Sudafed, her last dose was last night. [facility] Medical History Migraines Appendicitis Asthma Surgical History History of lipoma History of appendectomy History of tonsillectomy and adenoidectomy Family History Father HTN (hypertension) High cholesterol Substance use disorder Mother No problems noted. Brother HTN (hypertension) Anxiety High cholesterol Mental health disorder Brother Morbidly obese Maternal Grandmother No problems noted. Maternal Grandfather Heart disease Paternal Grandmother No problems noted. Paternal Grandfather No problems noted. Son No problems noted. Son No problems noted. Son No problems noted. Social History Housing: Apartment Alcohol intake: never Patient Tobacco Use Status: Former Tobacco user Years Smoked: quit 2005 e-Cigarette/Vaping Use: Never Used Second Hand Smoke Exposure: No service: No Current occupational status: employed Current occupation: [employer] Current occupational exposures/hazards: No Cognitive needs: No Hearing needs: No Vision needs: No Review of Systems Const All systems reviewed & are unremarkable except as noted in HPI and below Physical Exam Vital Signs: Last Vital Signs Temp 98.1 F 09/17/24 08:11 Pulse 110 H 09/17/24 08:11 BP 130/80 09/17/24 08:11 Pulse Ox 98 09/17/24 08:11 BMI result Body Mass Index 39.9 Const General: cooperative, healthy appearing, comfortable and no acute distress Orientation/consciousness: patient oriented x3 Limitations: no limitations HEENT Head: Yes normal to inspection Ears: hearing grossly normal bilaterally, external ears normal and TM's normal bilaterally General nose exam: Normal external nose present, Normal nares present and No nasal discharge present Face and sinus: Yes normal facial exam and Yes sinus tenderness (Bilateral maxillary) Mouth: Normal oral and palatal mucosa present and moist mucous membranes Throat: Yes tonsils normal, Yes uvula midline and Yes posterior oropharynx abnormal (Erythema) Eyes General: appearance normal, both eyes and all related structures Neck Neck: Yes normal visual inspection Resp Effort & Inspection: normal respiratory effort, able to speak in complete sentences, Actively coughing, no respiratory distress, not tachypneic, no tripod positioning and no use of accessory muscles Auscultation: vesicular breath sounds on the right Cardio Rate: regular rate Rhythm: regular rhythm Heart sounds: normal S1 and S2 Skin General skin exam: no rashes or lesions noted Neuro General: patient oriented x3 Extrem General: Yes normal to inspection and Yes no clubbing, cyanosis or edema Assessment & Plan Assessment & Plan (1) Lower respiratory infection (e.g., bronchitis, pneumonia, pneumonitis, pulmonitis): Code(s): J22 - Unspecified acute lower respiratory infection Plan: Heart rate is little bit high varying between 100-110, encouraged patient to increase fluid intake. Also we will get a chest x-ray as lung sounds were a little vesicular in the right upper lobe. Recommended she stopped taking the prednisone as I do not hear any wheezing in her lungs and her uvula is no longer swollen which was her main concern at her visit 2 days ago. Plan See above Orders: Orders XR chest 2V Today R05.9 - Cough, unspecified Coding Level of Care Code Est Pt Level 4 (64127) Diagnoses Lower respiratory infection (e.g., bronchitis, pneumonia, pneumonitis, pulmonitis) J22
[2024-09-17 08:52] VITALS: PULSE 101
== END 2024-09-17 11:19 | disposition home or self-care (01) ==
PROVIDERS: PCP Nurse Practitioner Family; Visit Provider Physician Assistant
DX: J22 Unspecified acute lower respiratory infection (principal)

== ENCOUNTER 2025-06-30 07:55 | Outpatient (AMB) | payer OTHER, SELFPAY ==
[2025-06-30 08:04] VITALS: BP 122/82; PULSE 87; O2SAT 98; BMI 41.5
--- NOTE | 2025-06-30 08:04 | MHC.PC.OV ---
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 Accompanied by: Self / Same As Patient Allergies Sulfa (Sulfonamide Antibiotics) Allergy (Unknown, Verified 06/30/25 08:57) Hives, hives, ulcers doxycycline Adverse Reaction (Intermediate, Verified 06/30/25 08:57) Nausea Medication List - Last Reconciled 06/30/25 by Casper Carey, ICE GUARD TESTER- albuterol sulfate 90 mcg/actuation (Ventolin HFA) 1 to 2 inhaled every 6 hours PRN; mfxjmnz-ddwavawfeikbg-qqfvjuqh 250-250-65 mg (Excedrin Extra Strength) 1 tab PO Q4-6H PRN buspirone 5 mg PO BID 90 days cetirizine (Zyrtec) 10 mg PO BID omeprazole 40 mg PO DAILY 90 days sumatriptan succinate take 1 tab at onset of headache; if no relief may repeat 1 tab after at least 2 hrs; max = 4 tabs/24 hr PO Tobacco use date assessed: 06/30/25 Dental Screening Dental Screen Date: 06/30/25 Did you have a dental visit in the last 12 months?: Yes Did you have a dental problem in the last 6 months where you did not have access to dental care?: No Was dental information given to patient?: Patient has dentist HPI PE HPI Details History of Present Illness The patient is a 39-year-old female presenting for a physical examination and management of ongoing health issues. She reports experiencing migraines for several years, characterized by pain behind her left eye, photophobia, phonophobia, and nausea. The migraines occur frequently, requiring the use of Excedrin up to five times a week, with limited relief, and sumatriptan is also part of her treatment regimen. She has been advised to start vitamin B2 and magnesium as preventative measures and is being referred to neurology for further evaluation. The patient is also dealing with obesity, attributed to a sedentary lifestyle, including spending over four hours a day in her vehicle. She has noticed pitting edema in her lower extremities bilaterally. There is no history of pancreatitis or thyroid carcinoma, and dietary modifications have been discussed, emphasizing the avoidance of high sodium, processed, fatty, and high carbohydrate foods. Health Maintenance - Recommended dietary modifications to avoid high sodium, processed, fatty, and high carbohydrate foods. - Advised portion control with meals to feel satisfied, not full. 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 Review of Systems - Neurological: Reports migraines with pain behind the left eye, photophobia, phonophobia, and nausea. - Musculoskeletal: Reports pitting edema in bilateral lower extremities. - denies any sob, cp, constipation, fevers, chills, urinary issues Physical Exam General: Cooperative, healthy appearing, comfortable, no acute distress and well developed, morbildy obese Orientation: Patient oriented x3 Limitations: No limitations Head: Normal to inspection Ears: Hearing grossly normal bilaterally Nose: Normal external nose present Face and sinus: Normal facial exam Eyes: Appearance normal, both eyes and all related structures Neck: Normal visual inspection and Yes full ROM Respiratory: Normal respiratory effort and able to speak in complete sentences. Clear to auscultation bilaterally Cardiovascular: Regular rate and rhythm. Normal S1 and S2 GI: Normal to inspection. Soft to palpation and nontender : testicles without masses/lesions and no hernias appreciated Skin: No rashes or lesions noted Neuro: Patient oriented x3 Extremities: Pitting edema bilaterally in lower extremities Results 1. Migraine The patient is experiencing migraines characterized by pain behind the left eye, photophobia, phonophobia, and nausea. She is currently using Excedrin up to five times a week with limited relief and sumatriptan as part of her treatment regimen. The plan includes starting vitamin B2 and magnesium as preventative measures and a referral to neurology for further evaluation. 2. Obesity The patient is morbidly obese, attributed to a sedentary lifestyle, including spending over four hours a day in her vehicle. A GLP-1 agonist is recommended, and the patient is advised to contact her insurance company to determine coverage. Dietary modifications have been discussed, emphasizing the avoidance of high sodium, processed, fatty, and high carbohydrate foods. 3. Edema The patient reports pitting edema in her lower extremities bilaterally. The edema is noted in the context of her obesity and sedentary lifestyle. Discussion Notes I discussed with the patient the ongoing management of her migraines, including the use of vitamin B2 and magnesium as preventative measures and the referral to neurology for further evaluation. We also talked about her obesity and the potential use of a GLP-1 agonist, advising her to check with her insurance for coverage. Dietary modifications were emphasized, focusing on reducing high sodium, processed, fatty, and high carbohydrate foods. Patient Instructions - Start taking vitamin B2 400 mg in the morning and magnesium 400 mg at night as preventative measures for migraines. - Follow up with neurology for further evaluation of migraines. - Contact your insurance company to determine coverage for a GLP-1 agonist. - Avoid high sodium, processed, fatty, and high carbohydrate foods. - Practice portion control with meals to feel satisfied, not full. [facility] Medical History Migraines Appendicitis Asthma Surgical History History of lipoma History of appendectomy History of tonsillectomy and adenoidectomy Family History Father HTN (hypertension) High cholesterol Substance use disorder Mother No problems noted. Brother HTN (hypertension) Anxiety High cholesterol Mental health disorder Brother Morbidly obese Maternal Grandmother No problems noted. Maternal Grandfather Heart disease Paternal Grandmother No problems noted. Paternal Grandfather No problems noted. Son No problems noted. Son No problems noted. Son No problems noted. Social History Housing: Apartment Alcohol intake: never Patient Tobacco Use Status: Former Tobacco user Years Smoked: quit 2005 e-Cigarette/Vaping Use: Never Used Second Hand Smoke Exposure: No service: No Current occupational status: employed Current occupation: [employer] Current occupational exposures/hazards: No Cognitive needs: No Hearing needs: No Vision needs: No Questionnaire PHQ-9 Over the last 2 weeks, how often have you been bothered by any of the following problems? 1. Little interest or pleasure in doing things: several days 2. Feeling down, depressed, or hopeless: not at all 3. Trouble falling or staying asleep, or sleeping too much: nearly every day 4. Feeling tired or having little energy: nearly every day 5. Poor appetite or overeating: nearly every day 6. Feeling bad about yourself - or that you are a failure or have let yourself or your family down: not at all 7. Trouble concentrating on things, such as reading the newspaper or watching television: nearly every day 8. Moving or speaking so slowly that other people could have noticed. Or the opposite - being so fidgety or restless that you have been moving around a lot more than usual: not at all 9. Thoughts that you would be better off or of hurting yourself in some way: not at all Total score: 13 Depression Screening Interpretation: Positive Depression Screening Done: Yes 52342 - PHQ-9 Billing: Yes Source: Developed by Drs. Ross Amor, Danisha Beck, Keyon Zhang and colleagues, with an educational coretta from [employer]. Thrive Questionnaire Date Thrive assessed: 06/29/25 I am a: Patient What is your living situation today?: I have a steady place to live Within the past 12 months, did the food you bought not last and you didn't have the money to get more?: Never true Within the past 12 months, did you worry whether your food would run out before you got money to buy more?: Never true Do you have trouble paying for medicines?: No Do you have trouble getting transportation to medical appointments?: No Do you have trouble paying your heating and electricity bill?: No Do you have trouble taking care of your child, family member or friend?: No Do you have trouble with day-to-day activities such as bathing, preparing meals, shopping, managing finances, etc.?: No Are you currently unemployed and looking for a job?: No Are you interested in more education?: No Please select the resources that you would like help with: None Currently or been in a relationship where the following occur: No concerns reported THRIVE Score: 0 AUDIT C Alcohol Use Questionnaire (AUDIT-C) 1. How often do you have a drink containing alcohol?: Never 2. How many drinks containing alcohol do you have on a typical day when you are drinking?: 1 or 2 3. How often do you have six or more drinks on one occasion?: Never Total Score: 0 CASEY-7 AMB Questionnaire CASEY-7 Date CASEY - 7 assessed: 06/30/25 Feeling nervous, anxious, or on edge: 1 = Several days Not being able to stop or control worryin = Several days Worrying too much about different things: 1 = Several days Trouble relaxin = Several days Being so restless that it is hard to sit still: 2 = More than half the days Becoming easily annoyed or irritable: 2 = More than half the days Feeling afraid as if something awful might happen: 0 = Not at all Total CASEY-7 score (0-4 normal; 5-9 mild; 10-14 moderate; 15-21 severe): 8 Source: Developed by Drs. Ross Amor, Danisha Beck, Keyon Zhang and colleagues, with an educational coretta from [employer]. Physical exam (Primary Care) Vital Signs: Last Vital Signs Pulse 87 06/30/25 08:04 BP 122/82 06/30/25 08:04 Pulse Ox 98 06/30/25 08:04 BMI result Body Mass Index 41.5 Tobacco/Smoking Status: Tobacco use Status Tobacco use date assessed 06/30/25 06/30/25 08:08 Patient Tobacco Use Status Former Tobacco user 06/30/25 08:08 e-Cigarette/Vaping Use Never Used 06/30/25 08:08 PHQ-9: PHQ-9 Score PHQ-9: Total score 13 06/30/25 08:08 Depression Screening Interpretation: Positive Thrive Assessment: Date of Thrive Assessment Date Thrive assessed 06/29/25 06/30/25 08:08 Currently or been in a relationship where the following occur: No concerns reported Coding Level of Care Code Est Pt Level 3 (06169) Est Pt Prev Care 18-39y(89722) Diagnoses Migraines G43.909 Encounter for routine adult physical exam with abnormal findings Z. Morbid obesity E66.01 Additional Codes PHQ-9 - 21225 - PHQ-9 Billing: Yes ([id number]) Assessment & Plan Assessment & Plan (1) Migraines: Code(s): G43.909 - Migraine, unspecified, not intractable, without status migrainosus Category: Medical (2) Encounter for routine adult physical exam with abnormal findings: Code(s): Z00.01 - Encounter for general adult medical examination with abnormal findings Category: Medical (3) Morbid obesity: Code(s): E66.01 - Morbid (severe) obesity due to excess calories Category: Medical Plan . Orders: Orders Complete Blood Count Auto Diff Today Z00. - Encounter for general adult medical examination with abnormal findings Comprehensive [place]. Panel Fast Today Z00. - Encounter for general adult medical examination with abnormal findings TSH reflex Free T4 Today Z00. - Encounter for general adult medical examination with abnormal findings UA CC w/rflx Micro + Cult Today Z00. - Encounter for general adult medical examination with abnormal findings Lipid Panel Today Z00.01 - Encounter for general adult medical examination with abnormal findings Referrals Neurology Referral G43.909 - Migraine, unspecified, not intractable, without status migrainosus
== END 2025-06-30 08:54 | disposition home or self-care (01) ==
LOC: HO.HMCC 07:55
PROVIDERS: PCP Nurse Practitioner Family; Visit Provider Nurse Practitioner Family
DX: Z00.01 Encounter for general adult medical examination with abnormal findings (principal); G43.909 Migraine, unspecified, not intractable, without status migrainosus; E66.01 Morbid (severe) obesity due to excess calories; Z68.41 Body mass index [BMI] 40.0-44.9, adult

== ENCOUNTER → 2025-06-30 07:55 | Outpatient (BNVA) | payer OTHER, SELFPAY | PROVIDERS: PCP Nurse Practitioner Family; Visit Provider Nurse Practitioner Family | DX: Z00.01 Encounter for general adult medical examination with abnormal findings (principal); G43.909 Migraine, unspecified, not intractable, without status migrainosus; E66.01 Morbid (severe) obesity due to excess calories; R60.9 Edema, unspecified; Z68.41 Body mass index [BMI] 40.0-44.9, adult | CPT/HCPCS: 96127; 99212; 99395 ==

== ENCOUNTER 2025-07-12 13:34 | Outpatient (REF) | payer OTHER, SELFPAY ==
[2025-07-12 16:06] LABS: Appearance Urine Clear; Glucose Urine UA Negative (Negative); PH 5.5 (5.0-9.0); Specific Gravity - Urine 1.025 (1.005-1.025)
[2025-07-12 16:11] LABS: MANUAL DIFF FLAG NO
[2025-07-12 16:16] LABS: Hematocrit 38.4 % (37.0-47.0); Hemoglobin 12.6 g/dl (12.0-16.0); Imm Gran Abs Auto 0.04 X10*3/uL (0.00-0.03); Imm Gran Pct Auto 0.3 % (0.0-0.4); Lymphocytes Absolute Auto 2.8 X10*3/uL (1.2-4.9); Mean Corpuscular HGB Conc 32.8 g/dl (31.0-35.0); Mean Corpuscular Hemoglobin 25.6 pg (27.0-33.0); Mean Corpuscular Volume 78.0 fL (80.0-98.0); NRBC Abs Auto 0.000 X10*3/uL (0.0-0.012); NRBC Pct Auto 0.0 /100WBC (0.0-0.2); Platelet Count 338 X10*3/uL (160-400); Red Blood Count 4.92 X10*6/uL (4.20-5.50); White Blood Count 11.9 X10*3/uL (4.8-10.8)
[2025-07-12 16:39] LABS: Alanine Aminotransferase 24 U/L (0-31); Albumin Level 4.5 g/dL (3.5-5.0); Alkaline Phosphatase 62 U/L (39-117); Anion Gap 14 (12-20); Aspartate Amino Transferase 25 U/L (5-31); Blood Urea Nitrogen 14 mg/dL (9-16); Calcium 9.2 mg/dL (8.4-10.2); Carbon Dioxide 22 mmol/L (22-29); Chloride 106 mmol/L (96-108); Cholesterol 225 mg/dL (<200); Estimated Glomerular Filt Rate > 60; HDL Cholesterol 50 mg/dL (>40); Potassium 3.6 mmol/L (3.3-5.1); Sodium 138 mmol/L (135-145); Total Protein 7.6 g/dL (6.5-8.0); Triglycerides 219 mg/dL (<150)
== END 2025-07-12 13:35 | disposition home or self-care (01) ==
LOC: HO.HMGCLDS 13:34
PROVIDERS: PCP Nurse Practitioner Family; Visit Provider Nurse Practitioner Family
DX: Z00.01 Encounter for general adult medical examination with abnormal findings (principal)
CPT/HCPCS: 36415; 80053; 80061; 81003; 84443; 85025

== ENCOUNTER 2025-10-22 09:31 | Outpatient (REF) | payer OTHER, SELFPAY ==
[2025-10-22 18:47] LABS: CT PCR NOT DETECTED (Not Detect.); NG PCR NOT DETECTED (Not Detect.)
== END 2025-10-22 09:32 | disposition home or self-care (01) ==
LOC: HO.LNP 09:31
PROVIDERS: PCP Nurse Practitioner Family; Visit Provider Advanced Practice Midwife
DX: Z01.419 Encounter for gynecological examination (general) (routine) without abnormal findings (principal); Z32.02 Encounter for pregnancy test, result negative; Z20.2 Contact with and (suspected) exposure to infections with a predominantly sexual mode of transmission; Z97.5 Presence of (intrauterine) contraceptive device; N60.02 Solitary cyst of left breast; G43.909 Migraine, unspecified, not intractable, without status migrainosus; N95.1 Menopausal and female climacteric states
CPT/HCPCS: 87491; 87591; 87626; 88175